=== PATIENT | female | born 1935 ===

== ENCOUNTER → 2020-12-16 | Outpatient (CLI) | payer MEDICARE ==
--- NOTE | 2020-12-16 16:04 | RAD ---
US ABDOMINAL AORTA SCREENING AAA History:Reason: AAA / Spl. Instructions: / History: Comparison: January 14, 2017. Technique: Sonographic examination of the abdominal aorta was performed and multiple static images we re obtained. Degraded evaluation due to overlying bowel gas. Aneurysmal dilatation of the distal aorta measures 5. 4 cm anterior. Iliac arteries not well seen due to overlying bowel gas. Atheromatous plaque throughou t the aorta. Results discussed with physician office by clinical technologist at time of study. Impression: 1. Increased 5.4 cm abdominal aortic aneurysm. Electronically signed by: Rober Morocho DO (12/16/2020 4:02 PM) [id number]
== END ==
LOC: US 14:44
PROVIDERS: ATTEND Family Medicine
DX: I71.4 Abdominal aortic aneurysm, without rupture (principal); I70.0 Atherosclerosis of aorta
CPT/HCPCS: 76770

== ENCOUNTER 2021-12-18 22:13 | Inpatient (IN) | payer MEDICARE ==
[~2021-12-18] VITALS: Ht 149.9 cm; Wt 60.9 kg
[2021-12-18 22:10] VITALS: BP 155/69
[~2021-12-18 22:13] MED LIST: hydrALAZINE 25 MG TABLET PO SCH
[2021-12-18] MEDS: IV NORMAL SALINE 1000ML BAG 1,000 ML IV SCH (23:15)
[2021-12-19] MEDS: oxyCODONE/APAP 5/325 1 TAB TABLET PO PRN ×2 (00:06→13:14)
[2021-12-19] MEDS ORDERED: DILT240C33 PO (01:23)
[2021-12-19 02:45] VITALS: BP 118/72
[2021-12-19 04:50] LABS: HEMATOCRIT 33.7 % (36.0-47.0); HEMOGLOBIN 10.6 g/dL (12.0-15.5); RED BLOOD COUNT 3.54 x10^6/uL (3.50-5.40); RED CELL DISTRIBUTION WIDTH 15.2 % (11.5-14.5); WHITE BLOOD COUNT 11.4 x10^3/uL (4.0-11.0)
[2021-12-19] MEDS ORDERED: DOCU-109 PO (05:12)
[2021-12-19 06:04] LABS: CALCIUM 7.9 mg/dL (8.5-10.1); CREATININE 0.9 mg/dL (0.6-1.0); GFR 59.5; POTASSIUM 4.7 mmol/L (3.5-5.1)
[2021-12-19] MEDS ORDERED: TIOT4MIS3 IH (06:16)
[2021-12-19] MEDS ORDERED: ALBU2.5V8 IH (06:16)
[2021-12-19 07:00] VITALS: BP 142/65
[2021-12-19] MEDS ORDERED: NON FORMULARY ITEM (Tiotropium Br/Olodaterol HCl (Stiolto Respimat Inhal Spray) 4 GM) IH SCH (08:45)
[2021-12-19] MEDS ORDERED: IPRATRPIUM/ALBUTEROL 0.5/2.5MG 3 ML NEBU. NEB ONE (08:45)
--- NOTE | 2021-12-19 08:58 | PDOC1 ---
History and Physical Date of Admission Date of Admission DATE: 12/19/21 TIME: 08:47 Identification/Chief Complaint Chief Complaint hip pain Source Source: Chart review, Patient History of Present Illness History of Present Illness pt fell at [facility] and went to [facility], CK was 1480, BUN 53, Cr 1.4, glucose 160, C02 30 in the ER. IV fluid started by me overnight and labs better Family History Family History: No Significant Social History Smoke: No ALCOHOL: none Drugs: None Current Medications Current Medications Current Medications Morphine Sulfate (Morphine Sulfate) 2 mg PRN Q2HR PRN IVP PAIN; Start 12/18/21 at 23:15 Oxycodone/ Acetaminophen (Percocet 5/325) 2 tab PRN Q4HRS PRN PO pain severe; Start 12/18/21 at 23:15 Sodium Chloride 1,000 ml @ 80 mls/hr [id number] IV Last administered on 12/18/21at 23:15; Start 12/18/21 at 23:15 Amlodipine Besylate (Norvasc) 5 mg DAILY PO ; Start 12/18/21 at 00:00; Status Cancel Hydralazine HCl (Apresoline) 25 mg TID PO Last administered on 12/19/21at 00:06; Start 12/18/21 at 00:00; Stop 12/19/21 at 08:39; Status DC Oxycodone/ Acetaminophen (Percocet 5/325) 1 tab PRN Q4HRS PRN PO PAIN mild/mod Last administered on 12/19/21at 00:06; Start 12/19/21 at 00:00 Diltiazem HCl (Cardizem 24hr Cd) 240 mg DAILY PO ; Start 12/19/21 at 09:00 Docusate Sodium (Colace) 100 mg DAILY PO ; Start 12/19/21 at 09:00 Non-Formulary Medication (Tiotropium Br/ Olodaterol HCl (Stiolto Respimat Inhal [place])) 4 gm PRN QEVNG IH ; Start 12/19/21 at 08:45; Status UNV Active Scripts Active Reported Proair Hfa Inhaler (Albuterol Sulfate) 8.5 Gm Hfa.aer.ad 2 Puff IH PRN Q4-6HRS PRN 21 Days Stiolto Respimat Inhal [place] (Tiotropium Br/Olodaterol HCl) 4 Gm Mist.inhal 4 Gm IH PRN QEVNG Colace (Docusate Sodium) 100 Mg Capsule 100 Mg PO PRN PRN Diltiazem 24Hr Cd (Diltiazem HCl) 240 Mg Cap.er.24h 1 Cap PO DAILY 30 Days Allergies Allergies: Coded Allergies: Penicillins (Verified Allergy, Intermediate, Hives, 12/18/21) gabapentin (Verified Allergy, Intermediate, Hives, 12/18/21) itchy and anxiety [id number]-[id number]-TmP Reductase Inhibitor (Verified Allergy, Unknown, Hives, 12/18/21) not sure says itchy, hives and confused tramadol (Verified Adverse Reaction, Unknown, Anxiety, 12/18/21) ROS General: No: Chills, Night Sweats, Fatigue, Malaise, Appetite, Other PSYCHOLOGICAL ROS: No: Anxiety, Behavioral Disorder, Concentration difficultie, Decreased libido, Depression, Disorientation, Hallucinations, Hostility, Irritablity, Memory difficulties, Mood Swings, Obsessive thoughts, Physical abuse, Sexual abuse, Sleep disturbances, Suicidal ideation, Other Eyes: No Blurry vision, No Decreased vision, No Double vision, No Dry eyes, No Excessive tearing, No Eye Pain, No Itchy Eyes, No Loss of vision, No Photophobia, No Scotomata, No Uses contacts, No Uses glasses, No Other HEENT: No: Heacaches, Visual Changes, Hearing change, Nasal congestion, Nasal discharge, Oral lesions, Sinus pain, Sore Throat, Epistaxis, Sneezing, Snoring, Tinnitus, Vertigo, Vocal changes, Other ENDOCRINE: No: Breast Changes, Galactorrhea, Hair Pattern Changes, Hot Flashes, Malaise/lethargy, Mood Swings, Palpitations, Polydipsia/polyuria, Skin Changes, Temperature Intolerance, Unexpected Weight Changes, Other Respiratory: YES: Shortness of breath, Tachypnea; No: Cough, Hemoptysis, Orthopnea, Pleuritic Pain, SOB with excertion, Sputum Changes, Stridor, Wheezing, Other Cardiovascular: No Chest Pain, No Palpitations, No Orthopnea, No Paroxysmal Noc. Dyspnea, No Edema, No Lt Headedness, No Other Gastrointestinal: No Nausea, No Vomiting, No Abdominal Pain, No Diarrhea, No Constipation, No Melena, No Hematochezia, No Other Genitourinary: No Dysuria, No Frequency, No Incontinence, No Hematuria, No Retention, No Discharge, No Urgency, No Pain, No Flank Pain, No Other, No , No , No , No , No , No , No Musculoskeletal: No Gait Disturbance, No Joint Pain, No Joint Stiffness, No Joint Swelling, No Muscle Pain, No Muscular Weakness, No Pain In:, No Swelling In:, No Other Neurological: No Behavorial Changes, No Bowel/Bladder ControlChng, No Confusion, No Dizziness, No Gait Disturbance, No Headaches, No Impaired Coord/balance, No Memory Loss, No Numbness/Tingling, No Seizures, No Speech Problems, No Tremors, No Visual Changes, No Weakness, No Other Skin: No Dry Skin, No Eczema, No Hair Changes, No Lumps, No Mole Changes, No Mottling, No Nail Changes, No Pruritus, No Rash, No Skin Lesion Changes, No Other, No Acne Physical Exam General: Cooperative, moderate distress (pain) HEENT: PERRLA, EOMI, Mucous membr. moist/pink Lungs: Other (limited volume, end wheeze, ) Heart: no gallops, no murmurs Abdomen: Normal bowel sounds, No tenderness, No hepatosplenomegaly Extremities: No cyanosis, No edema Skin: No rashes, No significant lesion Neuro: Normal tone, Sensation intact Psych/Mental Status: Mood NL Vitals Vitals Vital Signs Date Time Temp Pulse Resp B/P (MAP) Pulse Ox O2 Delivery O2 Flow Rate FiO2 12/19/21 02:45 97.9 82 16 118/72 (87) 99 Nasal Cannula 4.0 97.9 Labs Labs Laboratory Tests Test 12/19/21 04:40 White Blood Count 11.4 x10^3/uL (4.0-11.0) Red Blood Count 3.54 x10^6/uL (3.50-5.40) Hemoglobin 10.6 g/dL (12.0-15.5) Hematocrit 33.7 % (36.0-47.0) Mean Corpuscular Volume 95 fL (79-100) Mean Corpuscular Hemoglobin 30 pg (25-35) Mean Corpuscular Hemoglobin Concent 32 g/dL (31-37) Red Cell Distribution Width 15.2 % (11.5-14.5) Platelet Count 193 x10^3/uL (140-400) Sodium Level 140 mmol/L (136-145) Potassium Level 4.7 mmol/L (3.5-5.1) Chloride Level 105 mmol/L (98-107) Carbon Dioxide Level 30 mmol/L (21-32) Anion Gap 5 (6-14) Blood Urea Nitrogen 38 mg/dL (7-20) Creatinine 0.9 mg/dL (0.6-1.0) Estimated GFR (Cockcroft-Gault) 59.5 Glucose Level 112 mg/dL (70-99) Calcium Level 7.9 mg/dL (8.5-10.1) Creatine Kinase 627 U/L (26-192) Troponin I High Sensitivity 279 ng/L (4-50) Laboratory Tests Test 12/19/21 04:40 White Blood Count 11.4 x10^3/uL (4.0-11.0) Red Blood Count 3.54 x10^6/uL (3.50-5.40) Hemoglobin 10.6 g/dL (12.0-15.5) Hematocrit 33.7 % (36.0-47.0) Mean Corpuscular Volume 95 fL (79-100) Mean Corpuscular Hemoglobin 30 pg (25-35) Mean Corpuscular Hemoglobin Concent 32 g/dL (31-37) Red Cell Distribution Width 15.2 % (11.5-14.5) Platelet Count 193 x10^3/uL (140-400) Sodium Level 140 mmol/L (136-145) Potassium Level 4.7 mmol/L (3.5-5.1) Chloride Level 105 mmol/L (98-107) Carbon Dioxide Level 30 mmol/L (21-32) Anion Gap 5 (6-14) Blood Urea Nitrogen 38 mg/dL (7-20) Creatinine 0.9 mg/dL (0.6-1.0) Estimated GFR (Cockcroft-Gault) 59.5 Glucose Level 112 mg/dL (70-99) Calcium Level 7.9 mg/dL (8.5-10.1) Creatine Kinase 627 U/L (26-192) Troponin I High Sensitivity 279 ng/L (4-50) VTE Prophylaxis Ordered VTE Prophylaxis Devices: No VTE Pharmacological Prophylaxi: Yes Assessment/Plan Assessment/Plan RIght hip fracture, ortho consult, was NPO ordered, has eaten this AM, hopefully can schedule soon, maybe late today COPD, with tachypnea, may be at baseline, will get steroid nebs and combivent nebs, consult PULM for pre-op and to follow rhabdomyolysis, CK was 1480 last night, now 600 range with IV fluid overnight, cont, has white, renal function better on Cardizem, in sinus rhythm currenlty cognitive decline, or confused due to transfer and pain, hip pain, 2 prn pain meds, noted allergy to gabapentin admit Justifications for Admission Other Justification IZABELA PELAYO MD Dec 19, 2021 08:58
[2021-12-19] MEDS ORDERED: GABAPENTIN 100 MG CAPSULE. PO SCH (09:00)
--- NOTE | 2021-12-19 09:32 | PDOC ---
PULMONARY PROGRESS NOTES DATE: 12/19/21 TIME: 09:31 Vitals Vital Signs Date Time Temp Pulse Resp B/P (MAP) Pulse Ox O2 Delivery O2 Flow Rate FiO2 12/19/21 07:00 98.1 92 18 142/65 (90) 98 Nasal Cannula 4.0 98.1 Labs Laboratory Tests Test 12/19/21 04:40 12/19/21 08:15 White Blood Count 11.4 x10^3/uL (4.0-11.0) Red Blood Count 3.54 x10^6/uL (3.50-5.40) Hemoglobin 10.6 g/dL (12.0-15.5) Hematocrit 33.7 % (36.0-47.0) Mean Corpuscular Volume 95 fL (79-100) Mean Corpuscular Hemoglobin 30 pg (25-35) Mean Corpuscular Hemoglobin Concent 32 g/dL (31-37) Red Cell Distribution Width 15.2 % (11.5-14.5) Platelet Count 193 x10^3/uL (140-400) Sodium Level 140 mmol/L (136-145) Potassium Level 4.7 mmol/L (3.5-5.1) Chloride Level 105 mmol/L (98-107) Carbon Dioxide Level 30 mmol/L (21-32) Anion Gap 5 (6-14) Blood Urea Nitrogen 38 mg/dL (7-20) Creatinine 0.9 mg/dL (0.6-1.0) Estimated GFR (Cockcroft-Gault) 59.5 Glucose Level 112 mg/dL (70-99) Calcium Level 7.9 mg/dL (8.5-10.1) Creatine Kinase 627 U/L (26-192) Troponin I High Sensitivity 279 ng/L (4-50) 243 ng/L (4-50) Laboratory Tests Test 12/19/21 04:40 12/19/21 08:15 White Blood Count 11.4 x10^3/uL (4.0-11.0) Red Blood Count 3.54 x10^6/uL (3.50-5.40) Hemoglobin 10.6 g/dL (12.0-15.5) Hematocrit 33.7 % (36.0-47.0) Mean Corpuscular Volume 95 fL (79-100) Mean Corpuscular Hemoglobin 30 pg (25-35) Mean Corpuscular Hemoglobin Concent 32 g/dL (31-37) Red Cell Distribution Width 15.2 % (11.5-14.5) Platelet Count 193 x10^3/uL (140-400) Sodium Level 140 mmol/L (136-145) Potassium Level 4.7 mmol/L (3.5-5.1) Chloride Level 105 mmol/L (98-107) Carbon Dioxide Level 30 mmol/L (21-32) Anion Gap 5 (6-14) Blood Urea Nitrogen 38 mg/dL (7-20) Creatinine 0.9 mg/dL (0.6-1.0) Estimated GFR (Cockcroft-Gault) 59.5 Glucose Level 112 mg/dL (70-99) Calcium Level 7.9 mg/dL (8.5-10.1) Creatine Kinase 627 U/L (26-192) Troponin I High Sensitivity 279 ng/L (4-50) 243 ng/L (4-50) Medications Active Scripts Medications Dose Route/Sig Max Daily Dose Days Date Category Proair Hfa Inhaler (Albuterol Sulfate) 8.5 Gm Hfa.aer.ad 2 Puff IH PRN Q4-6HRS PRN 21 12/19/21 Reported Stiolto Respimat Inhal [place] (Tiotropium Br/Olodaterol HCl) 4 Gm Mist.inhal 4 Gm IH PRN QEVNG 12/19/21 Reported Colace (Docusate Sodium) 100 Mg Capsule 100 Mg PO PRN PRN 12/19/21 Reported Diltiazem 24Hr Cd (Diltiazem HCl) 240 Mg Cap.er.24h 1 Cap PO DAILY 30 12/19/21 Reported Impression . Full note dictated Respiratory status compensated BRITNEY ELIZABETH MD Dec 19, 2021 09:32
[2021-12-19] MEDS: CHOLECALCIFEROL (VITAMIN D3) 5,000 UNIT CAPSULE PO SCH (09:48)
[2021-12-19] MEDS: DOCUSATE SODIUM 100 MG CAPSULE. PO SCH (09:49)
[2021-12-19 11:00] VITALS: BP 142/65
[2021-12-19] MEDS: IPRATRPIUM/ALBUTEROL 0.5/2.5MG 3 ML NEBU. NEB SCH ×3 (11:01→20:09)
[2021-12-19] MEDS: IV NORMAL SALINE 1000ML BAG 1,000 ML IV SCH (13:13)
[2021-12-19] MEDS: HEPARIN for SUB-Q USE 5,000 UNIT/ML VIAL. SQ SCH ×2 (14:00→21:30)
[2021-12-19] MEDS: NYSTATIN TOPICAL POWDER 15GM BOTTLE. TP SCH ×2 (14:00→21:29)
[2021-12-19 15:00] VITALS: BP 135/70
[2021-12-19] MEDS: MORPHINE SULFATE 2 MG/ML INJ. IVP PRN (15:38)
[2021-12-19] MEDS ORDERED: DOCU100C28 PO (16:03)
[2021-12-19] MEDS ORDERED: DOXY100T PO (16:03)
[2021-12-19] MEDS ORDERED: VENTOLIN HFA18 GM INH (16:03)
[2021-12-19] MEDS ORDERED: METH-562 PO (16:03)
[2021-12-19] MEDS ORDERED: POLY2500 PO (16:03)
[2021-12-19] MEDS ORDERED: PRED20TA PO (16:03)
[2021-12-19] MEDS ORDERED: ALPR0.5T6 PO (16:03)
[2021-12-19] MEDS ORDERED: IPRA3AMP29 NEB (16:03)
[2021-12-19] MEDS ORDERED: HYDR25TA PO (16:03)
[2021-12-19] MEDS ORDERED: HYDR-2869 PO (16:03)
--- NOTE | 2021-12-19 16:04 | EKG ---
[facility] [address] [place] [address] Test Date: 2021-12-19 Test Time: 15:55:20 Pat Name: KESHAV RONQUILLO Department: Room: [facility] Gender: F Commercial Sales Consultant: YULI : 1935 Requested By: IZABELA PELAYO Order Number: [id number] Reading MD: Jadiel Fish Measurements Intervals [place] Rate: 97 P: 47 MS: 146 QRS: 13 QRSD: 88 T: 42 QT: 330 QTc: 423 Interpretive Statements SINUS RHYTHM Electronically Signed On 12-30-2021 9:39:50 CDT by Jadiel Fish
--- NOTE | 2021-12-19 16:27 | PDOC2 ---
CONSULT Date of Consult Date of Consult DATE: 12/19/21 TIME: 16:17 Reason for Consult Reason for Consult: Possible hip fracture Referring Physician Referring Physician: Refugio Identification/Chief Complaint Chief Complaint "whole body hurts" denies any hip pain Source Source: Chart review, Patient History of Present Illness Reason for Visit: Patient is a pleasant 86 yo F who fell out of bed recently and tells me her "whole body hurts", she has baseline pain but it has been worse since the fall. She denies any hip pain at rest or wtih attempted ambulation. She feel the pain throughout her lower legs, arms and back. Denies hitting her head. Past Medical History Cardiovascular: HTN Pulmonary: COPD GI: No pertinent hx Musculoskeletal: low back pain, Osteoarthritis Past Surgical History Past Surgical History: No pertinent history Family History Family History: No Significant Social History Quit ALCOHOL: none Drugs: None Current Medications Current Medications Current Medications Morphine Sulfate (Morphine Sulfate) 2 mg PRN Q2HR PRN IVP PAIN Last administered on 12/19/21at 15:38; Start 12/18/21 at 23:15 Oxycodone/ Acetaminophen (Percocet 5/325) 2 tab PRN Q4HRS PRN PO pain severe; Start 12/18/21 at 23:15 Sodium Chloride 1,000 ml @ 80 mls/hr [id number] IV Last administered on 12/19/21at 13:13; Start 12/18/21 at 23:15 Amlodipine Besylate (Norvasc) 5 mg DAILY PO ; Start 12/18/21 at 00:00; Status Cancel Hydralazine HCl (Apresoline) 25 mg TID PO Last administered on 12/19/21at 00:06; Start 12/18/21 at 00:00; Stop 12/19/21 at 08:39; Status DC Oxycodone/ Acetaminophen (Percocet 5/325) 1 tab PRN Q4HRS PRN PO PAIN mild/mod Last administered on 12/19/21at 13:14; Start 12/19/21 at 00:00 Diltiazem HCl (Cardizem 24hr Cd) 240 mg DAILY PO Last administered on 12/19/21at 09:49; Start 12/19/21 at 09:00 Docusate Sodium (Colace) 100 mg DAILY PO Last administered on 12/19/21at 09:49; Start 12/19/21 at 09:00 Non-Formulary Medication (Tiotropium Br/ Olodaterol HCl (Stiolto Respimat Inhal [place])) 4 gm PRN QEVNG IH ; Start 12/19/21 at 08:45; Status UNV Albuterol/ Ipratropium (Duoneb) 3 ml RTQID NEB Last administered on 12/19/21at 15:46; Start 12/19/21 at 12:00 Gabapentin (Neurontin) 100 mg BID PO ; Start 12/19/21 at 09:00; Stop 12/19/21 at 08:50; Status DC Albuterol/ Ipratropium (Duoneb) 3 ml 1X ONCE NEB ; Start 12/19/21 at 08:45; Stop 12/19/21 at 08:48; Status DC Budesonide (Pulmicort) 0.5 mg RTBID NEB ; Start 12/19/21 at 20:00 Heparin Sodium (Porcine) (Heparin Sodium) 5,000 unit Q8HRS SQ ; Start 12/19/21 at 14:00 Vitamin D (Vitamin D3) 5,000 unit DAILY PO Last administered on 12/19/21at 09:48; Start 12/19/21 at 09:00 Nystatin (Nystop) 1 helio BID TP ; Start 12/19/21 at 14:00 Active Scripts Active Reported Ventolin Hfa Inhaler (Albuterol Sulfate) 18 Gm Hfa.aer.ad 2 Puff INH Q4HRS Hydralazine Hcl 50 Mg Tablet 1 Tab PO TID Methocarbamol 750 Mg Tablet 750 Mg PO TID Doxycycline Hyclate 100 Mg Tablet 1 Tab PO BID Prednisone 20 Mg Tablet 10 Tab PO DAILY Polyethylene Glycol 3350 2,500 Gm Powder 17 Gm PO DAILY Duoneb 0.5-3(2.5) Mg/3 Ml (Albuterol/Ipratropium) 3 Ml Ampul.neb 3 Ml NEB QID Hydroxyzine Hcl 25 Mg Tablet 1 Tab PO HS Docusate Sodium 100 Mg Capsule 1 Cap PO BID 7 Days Alprazolam 0.5 Mg Tablet 1 Tab PO Q12HR Proair Hfa Inhaler (Albuterol Sulfate) 8.5 Gm Hfa.aer.ad 2 Puff IH PRN Q4-6HRS PRN 21 Days Stiolto Respimat Inhal [place] (Tiotropium Br/Olodaterol HCl) 4 Gm Mist.inhal 4 Gm IH PRN QEVNG Colace (Docusate Sodium) 100 Mg Capsule 100 Mg PO PRN PRN Diltiazem 24Hr Cd (Diltiazem HCl) 240 Mg Cap.er.24h 1 Cap PO DAILY 30 Days Allergies Allergies: Coded Allergies: Penicillins (Verified Allergy, Intermediate, Hives, 12/18/21) gabapentin (Verified Allergy, Intermediate, Hives, 12/18/21) itchy and anxiety Hbxwkiu-TXM-PkC Reductase Inhibitor (Verified Allergy, Unknown, Hives, 12/18/21) not sure says itchy, hives and confused tramadol (Verified Adverse Reaction, Unknown, Anxiety, 12/18/21) ROS General: No: Chills, Night Sweats, Fatigue, Malaise, Appetite, Other PSYCHOLOGICAL ROS: No: Anxiety, Behavioral Disorder, Concentration difficultie, Decreased libido, Depression, Disorientation, Hallucinations, Hostility, Irritablity, Memory difficulties, Mood Swings, Obsessive thoughts, Physical abuse, Sexual abuse, Sleep disturbances, Suicidal ideation, Other Eyes: No Blurry vision, No Decreased vision, No Double vision, No Dry eyes, No Excessive tearing, No Eye Pain, No Itchy Eyes, No Loss of vision, No Photophobia, No Scotomata, No Uses contacts, No Uses glasses, No Other HEENT: No: Heacaches, Visual Changes, Hearing change, Nasal congestion, Nasal discharge, Oral lesions, Sinus pain, Sore Throat, Epistaxis, Sneezing, Snoring, Tinnitus, Vertigo, Vocal changes, Other ALLERGY AND IMMUNOLOGY: No: Hives, Insect Bite Sensitivity, Itchy/Watery Eyes, Nasal Congestion, Post Nasal Drip, Seasonal Allergies, Other Hematological and Lymphatic: No: Bleeding Problems, Blood Clots, Blood Trans fusions, Brusing, Night Sweats, Pallor, Swollen Lymph Nodes, Other Respiratory: YES: Other (no new complaints); No: Cough, Hemoptysis, Orthopnea, Pleuritic Pain, Shortness of breath, SOB with excertion, Sputum Changes, Stridor, Tachypnea, Wheezing Cardiovascular: No Chest Pain, No Palpitations, No Orthopnea, No Paroxysmal Noc. Dyspnea, No Edema, No Lt Headedness, No Other Gastrointestinal: No Nausea, No Vomiting, No Abdominal Pain, No Diarrhea, No Constipation, No Melena, No Hematochezia, No Other Genitourinary: No Dysuria, No Frequency, No Incontinence, No Hematuria, No Retention, No Discharge, No Urgency, No Pain, No Flank Pain, No Other, No , No , No , No , No , No , No Musculoskeletal: Yes Joint Pain, Yes Joint Stiffness Neurological: No Behavorial Changes, No Bowel/Bladder ControlChng, No Confusion, No Dizziness, No Gait Disturbance, No Headaches, No Impaired Coord/balance, No Memory Loss, No Numbness/Tingling, No Seizures, No Speech Problems, No Tremors, No Visual Changes, No Weakness, No Other Physical Exam General: Alert, Oriented X3, No acute distress HEENT: Atraumatic, EOMI Lungs: Other (symmetric chest rise, no resp distress) Heart: Regular rate Abdomen: Soft, No tenderness Extremities: No edema, Normal pulses Skin: No rashes Neuro: Strength at 5/5 X4 ext, Sensation intact Psych/Mental Status: Mental status NL, Mood NL MUSCULOSKELETAL: Other (diffusely tender from knees distally BLE, no effusions, no gross abnormalities, knees stable, no pain at hips with logrolling, no tende rness around hips) Vitals VITALS Vital Signs Date Time Temp Pulse Resp B/P (MAP) Pulse Ox O2 Delivery O2 Flow Rate FiO2 12/19/21 15:47 97 Nasal Cannula 4.0 12/19/21 11:00 98.1 92 18 142/65 (90) 98.1 Labs Labs Laboratory Tests Test 12/19/21 04:40 12/19/21 08:15 White Blood Count 11.4 x10^3/uL (4.0-11.0) Red Blood Count 3.54 x10^6/uL (3.50-5.40) Hemoglobin 10.6 g/dL (12.0-15.5) Hematocrit 33.7 % (36.0-47.0) Mean Corpuscular Volume 95 fL (79-100) Mean Corpuscular Hemoglobin 30 pg (25-35) Mean Corpuscular Hemoglobin Concent 32 g/dL (31-37) Red Cell Distribution Width 15.2 % (11.5-14.5) Platelet Count 193 x10^3/uL (140-400) Sodium Level 140 mmol/L (136-145) Potassium Level 4.7 mmol/L (3.5-5.1) Chloride Level 105 mmol/L (98-107) Carbon Dioxide Level 30 mmol/L (21-32) Anion Gap 5 (6-14) Blood Urea Nitrogen 38 mg/dL (7-20) Creatinine 0.9 mg/dL (0.6-1.0) Estimated GFR (Cockcroft-Gault) 59.5 Glucose Level 112 mg/dL (70-99) Calcium Level 7.9 mg/dL (8.5-10.1) Creatine Kinase 627 U/L (26-192) Troponin I High Sensitivity 279 ng/L (4-50) 243 ng/L (4-50) Laboratory Tests Test 12/19/21 04:40 12/19/21 08:15 White Blood Count 11.4 x10^3/uL (4.0-11.0) Red Blood Count 3.54 x10^6/uL (3.50-5.40) Hemoglobin 10.6 g/dL (12.0-15.5) Hematocrit 33.7 % (36.0-47.0) Mean Corpuscular Volume 95 fL (79-100) Mean Corpuscular Hemoglobin 30 pg (25-35) Mean Corpuscular Hemoglobin Concent 32 g/dL (31-37) Red Cell Distribution Width 15.2 % (11.5-14.5) Platelet Count 193 x10^3/uL (140-400) Sodium Level 140 mmol/L (136-145) Potassium Level 4.7 mmol/L (3.5-5.1) Chloride Level 105 mmol/L (98-107) Carbon Dioxide Level 30 mmol/L (21-32) Anion Gap 5 (6-14) Blood Urea Nitrogen 38 mg/dL (7-20) Creatinine 0.9 mg/dL (0.6-1.0) Estimated GFR (Cockcroft-Gault) 59.5 Glucose Level 112 mg/dL (70-99) Calcium Level 7.9 mg/dL (8.5-10.1) Creatine Kinase 627 U/L (26-192) Troponin I High Sensitivity 279 ng/L (4-50) 243 ng/L (4-50) Images Images Xrays and CT from [facility] interpreted by myself, report reviewed. Xray showed possible linera luceny, CT demonstrated no fractures Assessment/Plan Assessment/Plan Given her imaging findgings and lack of hip pain, I recommended an attempt at weight bearing with PT/OT. Id recommend further imaging, Xrays to start; MRI of pelvis, with any increased pain during that. D/w nursing, will follow along ANA LENNON II, MD Dec 19, 2021 16:27
[2021-12-19 19:28] VITALS: BP 138/63
--- NOTE | 2021-12-19 19:40 | NUR ---
pt in bed assessment completed vss poc explained pt denied pain at this time call light in reach bed alarm is set will resume care and monitor pt.
[2021-12-19] MEDS: BUDESONIDE 0.5 MG/2 ML NEBU. NEB SCH (20:09)
[2021-12-19 22:56] VITALS: BP 138/68
[2021-12-20] MEDS: IV NORMAL SALINE 1000ML BAG 1,000 ML IV SCH ×2 (00:15→12:45)
[2021-12-20] MEDS: oxyCODONE/APAP 5/325 1 TAB TABLET PO PRN ×2 (00:43→20:17)
[2021-12-20 02:43] VITALS: BP 137/56
[2021-12-20 05:01] LABS: BASO # 0.1 x10^3/uL (0.0-0.2); BASO % 1 % (0-3); EOS # 0.1 x10^3/uL (0.0-0.7); EOS % 1 % (0-3); HEMATOCRIT 34.5 % (36.0-47.0); HEMOGLOBIN 10.8 g/dL (12.0-15.5); LYMPH % 12 % (24-48); MEAN CORPUSCULAR HEMOGLOBIN 30 pg (25-35); MEAN CORPUSCULAR HGB CONC 31 g/dL (31-37); MEAN CORPUSCULAR VOLUME 96 fL (79-100); MONO # 0.9 x10^3/uL (0.0-1.1); MONO % 10 % (0-9); NEUT # 6.6 x10^3/uL (1.8-7.7); NEUT % 76 % (31-73); PLATELET COUNT 228 x10^3/uL (140-400); RED BLOOD COUNT 3.59 x10^6/uL (3.50-5.40); RED CELL DISTRIBUTION WIDTH 15.2 % (11.5-14.5); WHITE BLOOD COUNT 8.7 x10^3/uL (4.0-11.0)
[2021-12-20 05:31] LABS: ALBUMIN/GLOBULIN RATIO 0.8 (1.0-1.7); CALCIUM 8.3 mg/dL (8.5-10.1); CREATININE 0.8 mg/dL (0.6-1.0); GFR 68.2; POTASSIUM 4.5 mmol/L (3.5-5.1); TOTAL BILIRUBIN 0.3 mg/dL (0.2-1.0); TOTAL PROTEIN 6.6 g/dL (6.4-8.2)
[2021-12-20] MEDS: HEPARIN for SUB-Q USE 5,000 UNIT/ML VIAL. SQ SCH ×3 (06:12→21:05)
[2021-12-20 07:00] VITALS: BP 154/69
[2021-12-20] MEDS: BUDESONIDE 0.5 MG/2 ML NEBU. NEB SCH ×2 (07:07→20:00)
[2021-12-20] MEDS: IPRATRPIUM/ALBUTEROL 0.5/2.5MG 3 ML NEBU. NEB SCH ×4 (07:07→20:00)
--- NOTE | 2021-12-20 08:30 | PDOC ---
ORTHO PROGRESS NOTES DATE: 12/20/21 TIME: 08:29 Subjective Patient complaining of whole body pain worse with any attempted movement or weightbearing. She is complaining of some hip pain today, diffuse, nonradiat ing, worse when she tries to put weight on her legs. Vitals Vital Signs Date Time Temp Pulse Resp B/P (MAP) Pulse Ox O2 Delivery O2 Flow Rate FiO2 12/20/21 07:08 95 Nasal Cannula 4.0 12/20/21 07:00 97.4 73 18 154/69 (97) 97.4 Labs Laboratory Tests Test 12/19/21 04:40 12/19/21 08:15 12/20/21 03:20 White Blood Count 11.4 x10^3/uL (4.0-11.0) 8.7 x10^3/uL (4.0-11.0) Red Blood Count 3.54 x10^6/uL (3.50-5.40) 3.59 x10^6/uL (3.50-5.40) Hemoglobin 10.6 g/dL (12.0-15.5) 10.8 g/dL (12.0-15.5) Hematocrit 33.7 % (36.0-47.0) 34.5 % (36.0-47.0) Mean Corpuscular Volume 95 fL (79-100) 96 fL (79-100) Mean Corpuscular Hemoglobin 30 pg (25-35) 30 pg (25-35) Mean Corpuscular Hemoglobin Concent 32 g/dL (31-37) 31 g/dL (31-37) Red Cell Distribution Width 15.2 % (11.5-14.5) 15.2 % (11.5-14.5) Platelet Count 193 x10^3/uL (140-400) 228 x10^3/uL (140-400) Sodium Level 140 mmol/L (136-145) 139 mmol/L (136-145) Potassium Level 4.7 mmol/L (3.5-5.1) 4.5 mmol/L (3.5-5.1) Chloride Level 105 mmol/L (98-107) 106 mmol/L (98-107) Carbon Dioxide Level 30 mmol/L (21-32) 32 mmol/L (21-32) Anion Gap 5 (6-14) 1 (6-14) Blood Urea Nitrogen 38 mg/dL (7-20) 25 mg/dL (7-20) Creatinine 0.9 mg/dL (0.6-1.0) 0.8 mg/dL (0.6-1.0) Estimated GFR (Cockcroft-Gault) 59.5 68.2 Glucose Level 112 mg/dL (70-99) 98 mg/dL (70-99) Calcium Level 7.9 mg/dL (8.5-10.1) 8.3 mg/dL (8.5-10.1) Creatine Kinase 627 U/L (26-192) 254 U/L (26-192) Troponin I High Sensitivity 279 ng/L (4-50) 243 ng/L (4-50) Neutrophils (%) (Auto) 76 % (31-73) Lymphocytes (%) (Auto) 12 % (24-48) Monocytes (%) (Auto) 10 % (0-9) Eosinophils (%) (Auto) 1 % (0-3) Basophils (%) (Auto) 1 % (0-3) Neutrophils # (Auto) 6.6 x10^3/uL (1.8-7.7) Lymphocytes # (Auto) 1.0 x10^3/uL (1.0-4.8) Monocytes # (Auto) 0.9 x10^3/uL (0.0-1.1) Eosinophils # (Auto) 0.1 x10^3/uL (0.0-0.7) Basophils # (Auto) 0.1 x10^3/uL (0.0-0.2) BUN/Creatinine Ratio 31 (6-20) Ionized Calcium 1.23 mmol/L (1.13-1.32) Total Bilirubin 0.3 mg/dL (0.2-1.0) Aspartate Amino Transf (AST/SGOT) 39 U/L (15-37) Alanine Aminotransferase (ALT/SGPT) 42 U/L (14-59) Alkaline Phosphatase 96 U/L (46-116) Total Protein 6.6 g/dL (6.4-8.2) Albumin 3.0 g/dL (3.4-5.0) Albumin/Globulin Ratio 0.8 (1.0-1.7) Laboratory Tests Test 12/20/21 03:20 White Blood Count 8.7 x10^3/uL (4.0-11.0) Red Blood Count 3.59 x10^6/uL (3.50-5.40) Hemoglobin 10.8 g/dL (12.0-15.5) Hematocrit 34.5 % (36.0-47.0) Mean Corpuscular Volume 96 fL (79-100) Mean Corpuscular Hemoglobin 30 pg (25-35) Mean Corpuscular Hemoglobin Concent 31 g/dL (31-37) Red Cell Distribution Width 15.2 % (11.5-14.5) Platelet Count 228 x10^3/uL (140-400) Neutrophils (%) (Auto) 76 % (31-73) Lymphocytes (%) (Auto) 12 % (24-48) Monocytes (%) (Auto) 10 % (0-9) Eosinophils (%) (Auto) 1 % (0-3) Basophils (%) (Auto) 1 % (0-3) Neutrophils # (Auto) 6.6 x10^3/uL (1.8-7.7) Lymphocytes # (Auto) 1.0 x10^3/uL (1.0-4.8) Monocytes # (Auto) 0.9 x10^3/uL (0.0-1.1) Eosinophils # (Auto) 0.1 x10^3/uL (0.0-0.7) Basophils # (Auto) 0.1 x10^3/uL (0.0-0.2) Sodium Level 139 mmol/L (136-145) Potassium Level 4.5 mmol/L (3.5-5.1) Chloride Level 106 mmol/L (98-107) Carbon Dioxide Level 32 mmol/L (21-32) Anion Gap 1 (6-14) Blood Urea Nitrogen 25 mg/dL (7-20) Creatinine 0.8 mg/dL (0.6-1.0) Estimated GFR (Cockcroft-Gault) 68.2 BUN/Creatinine Ratio 31 (6-20) Glucose Level 98 mg/dL (70-99) Calcium Level 8.3 mg/dL (8.5-10.1) Ionized Calcium 1.23 mmol/L (1.13-1.32) Total Bilirubin 0.3 mg/dL (0.2-1.0) Aspartate Amino Transf (AST/SGOT) 39 U/L (15-37) Alanine Aminotransferase (ALT/SGPT) 42 U/L (14-59) Alkaline Phosphatase 96 U/L (46-116) Creatine Kinase 254 U/L (26-192) Total Protein 6.6 g/dL (6.4-8.2) Albumin 3.0 g/dL (3.4-5.0) Albumin/Globulin Ratio 0.8 (1.0-1.7) Notes She is awake and alert in bed. She is eating breakfast. Mood and affect are appropriate. Examination of bilateral lower extremities reveals diffuse tenderness throughout, she has increased pain around her hips and pelvis with logrolling bilaterally Problems: (1) Hip pain, bilateral Assessment and Plan Given her pain and inability to work with PT and OT, we do need to get an MRI to exclude fracture. We will hold off on PT and OT until MRI has been performed ANA LENNON II, MD Dec 20, 2021 08:30
--- NOTE | 2021-12-20 08:42 | PDOC ---
PULMONARY PROGRESS NOTES DATE: 12/20/21 TIME: 08:42 Subjective Patient not more short of air, continues to have great pain mainly all over more activity Vitals Vital Signs Date Time Temp Pulse Resp B/P (MAP) Pulse Ox O2 Delivery O2 Flow Rate FiO2 12/20/21 07:08 95 Nasal Cannula 4.0 12/20/21 07:00 97.4 73 18 154/69 (97) 97.4 ROS: No Nausea, No Chest Pain, No Abdominal Pain, No Increase Cough General: Alert Cardiovascular: S1, S2 Abdomen: Soft Neuro Exam: Alert Extremities: No Edema Labs Laboratory Tests Test 12/19/21 04:40 12/19/21 08:15 12/20/21 03:20 White Blood Count 11.4 x10^3/uL (4.0-11.0) 8.7 x10^3/uL (4.0-11.0) Red Blood Count 3.54 x10^6/uL (3.50-5.40) 3.59 x10^6/uL (3.50-5.40) Hemoglobin 10.6 g/dL (12.0-15.5) 10.8 g/dL (12.0-15.5) Hematocrit 33.7 % (36.0-47.0) 34.5 % (36.0-47.0) Mean Corpuscular Volume 95 fL (79-100) 96 fL (79-100) Mean Corpuscular Hemoglobin 30 pg (25-35) 30 pg (25-35) Mean Corpuscular Hemoglobin Concent 32 g/dL (31-37) 31 g/dL (31-37) Red Cell Distribution Width 15.2 % (11.5-14.5) 15.2 % (11.5-14.5) Platelet Count 193 x10^3/uL (140-400) 228 x10^3/uL (140-400) Sodium Level 140 mmol/L (136-145) 139 mmol/L (136-145) Potassium Level 4.7 mmol/L (3.5-5.1) 4.5 mmol/L (3.5-5.1) Chloride Level 105 mmol/L (98-107) 106 mmol/L (98-107) Carbon Dioxide Level 30 mmol/L (21-32) 32 mmol/L (21-32) Anion Gap 5 (6-14) 1 (6-14) Blood Urea Nitrogen 38 mg/dL (7-20) 25 mg/dL (7-20) Creatinine 0.9 mg/dL (0.6-1.0) 0.8 mg/dL (0.6-1.0) Estimated GFR (Cockcroft-Gault) 59.5 68.2 Glucose Level 112 mg/dL (70-99) 98 mg/dL (70-99) Calcium Level 7.9 mg/dL (8.5-10.1) 8.3 mg/dL (8.5-10.1) Creatine Kinase 627 U/L (26-192) 254 U/L (26-192) Troponin I High Sensitivity 279 ng/L (4-50) 243 ng/L (4-50) Neutrophils (%) (Auto) 76 % (31-73) Lymphocytes (%) (Auto) 12 % (24-48) Monocytes (%) (Auto) 10 % (0-9) Eosinophils (%) (Auto) 1 % (0-3) Basophils (%) (Auto) 1 % (0-3) Neutrophils # (Auto) 6.6 x10^3/uL (1.8-7.7) Lymphocytes # (Auto) 1.0 x10^3/uL (1.0-4.8) Monocytes # (Auto) 0.9 x10^3/uL (0.0-1.1) Eosinophils # (Auto) 0.1 x10^3/uL (0.0-0.7) Basophils # (Auto) 0.1 x10^3/uL (0.0-0.2) BUN/Creatinine Ratio 31 (6-20) Ionized Calcium 1.23 mmol/L (1.13-1.32) Total Bilirubin 0.3 mg/dL (0.2-1.0) Aspartate Amino Transf (AST/SGOT) 39 U/L (15-37) Alanine Aminotransferase (ALT/SGPT) 42 U/L (14-59) Alkaline Phosphatase 96 U/L (46-116) Total Protein 6.6 g/dL (6.4-8.2) Albumin 3.0 g/dL (3.4-5.0) Albumin/Globulin Ratio 0.8 (1.0-1.7) Laboratory Tests Test 12/20/21 03:20 White Blood Count 8.7 x10^3/uL (4.0-11.0) Red Blood Count 3.59 x10^6/uL (3.50-5.40) Hemoglobin 10.8 g/dL (12.0-15.5) Hematocrit 34.5 % (36.0-47.0) Mean Corpuscular Volume 96 fL (79-100) Mean Corpuscular Hemoglobin 30 pg (25-35) Mean Corpuscular Hemoglobin Concent 31 g/dL (31-37) Red Cell Distribution Width 15.2 % (11.5-14.5) Platelet Count 228 x10^3/uL (140-400) Neutrophils (%) (Auto) 76 % (31-73) Lymphocytes (%) (Auto) 12 % (24-48) Monocytes (%) (Auto) 10 % (0-9) Eosinophils (%) (Auto) 1 % (0-3) Basophils (%) (Auto) 1 % (0-3) Neutrophils # (Auto) 6.6 x10^3/uL (1.8-7.7) Lymphocytes # (Auto) 1.0 x10^3/uL (1.0-4.8) Monocytes # (Auto) 0.9 x10^3/uL (0.0-1.1) Eosinophils # (Auto) 0.1 x10^3/uL (0.0-0.7) Basophils # (Auto) 0.1 x10^3/uL (0.0-0.2) Sodium Level 139 mmol/L (136-145) Potassium Level 4.5 mmol/L (3.5-5.1) Chloride Level 106 mmol/L (98-107) Carbon Dioxide Level 32 mmol/L (21-32) Anion Gap 1 (6-14) Blood Urea Nitrogen 25 mg/dL (7-20) Creatinine 0.8 mg/dL (0.6-1.0) Estimated GFR (Cockcroft-Gault) 68.2 BUN/Creatinine Ratio 31 (6-20) Glucose Level 98 mg/dL (70-99) Calcium Level 8.3 mg/dL (8.5-10.1) Ionized Calcium 1.23 mmol/L (1.13-1.32) Total Bilirubin 0.3 mg/dL (0.2-1.0) Aspartate Amino Transf (AST/SGOT) 39 U/L (15-37) Alanine Aminotransferase (ALT/SGPT) 42 U/L (14-59) Alkaline Phosphatase 96 U/L (46-116) Creatine Kinase 254 U/L (26-192) Total Protein 6.6 g/dL (6.4-8.2) Albumin 3.0 g/dL (3.4-5.0) Albumin/Globulin Ratio 0.8 (1.0-1.7) Medications Active Scripts Medications Dose Route/Sig Max Daily Dose Days Date Category Proair Hfa Inhaler (Albuterol Sulfate) 8.5 Gm Hfa.aer.ad 2 Puff IH PRN Q4-6HRS PRN 21 12/19/21 Reported Stiolto Respimat Inhal [place] (Tiotropium Br/Olodaterol HCl) 4 Gm Mist.inhal 4 Gm IH PRN QEVNG 12/19/21 Reported Colace (Docusate Sodium) 100 Mg Capsule 100 Mg PO PRN PRN 12/19/21 Reported Diltiazem 24Hr Cd (Diltiazem HCl) 240 Mg Cap.er.24h 1 Cap PO DAILY 30 12/19/21 Reported Impression . IMPRESSION: 1. Abnormal x-ray, compatible with a history of chronic obstructive pulmonary disease, possible mild interstitial lung disease. 2. Chronic respiratory failure. 3. Recent fall, possible right hip fracture. 4. Rhabdomyolysis. Plan . 12/[address] Mansoor TRUJILLO pending Continue current support 12/18 PLAN: Respiratory status appears to be compensated, apparently the patient does not require any further orthopedic interventions. Continue current support. I do appreciate the privilege in sharing in the patient's care. BRITNEY ELIZABETH MD Dec 20, 2021 08:42
[2021-12-20] MEDS: NYSTATIN TOPICAL POWDER 15GM BOTTLE. TP SCH ×2 (09:00→20:18)
[2021-12-20] MEDS: MORPHINE SULFATE 2 MG/ML INJ. IVP PRN (09:05)
[2021-12-20] MEDS: DOCUSATE SODIUM 100 MG CAPSULE. PO SCH (09:14)
[2021-12-20] MEDS: CHOLECALCIFEROL (VITAMIN D3) 5,000 UNIT CAPSULE PO SCH (09:14)
--- NOTE | 2021-12-20 09:22 | CONS ---
DATE OF CONSULTATION: 12/19/2021 ATTENDING PHYSICIAN: Rhona Huff MD REASON FOR CONSULTATION: The patient is seen in pulmonary consultation at the request of Dr. Huff for abnormal x-ray. HISTORY OF PRESENT ILLNESS: The patient is an 86-year-old that fell at home, went to [facility] Emergency Room. There was some concern about possibility of a fracture. She was transferred to [place]. I was consulted for possible pulmonary clearance for surgery. The patient normally wears oxygen at home at 3 liters at rest, though she was asked to increase it to 4 liters with exertion. She sees Dr. Bearden up at the [facility]. She has been on oxygen for 3-5 years. She is short of breath. She normally walks in the house with a walker, normally does not get out much. She uses Stiolto on a regular basis and p.r.n. albuterol treatment. She has not been hospitalized recently with acute exacerbation of COPD. She has been told that she has COPD, but no history of interstitial lung disease. I reviewed her x-ray, which revealed increased lung markings, compatible with possible interstitial lung disease. She denies fever, chills or night sweats. PAST MEDICAL HISTORY: Otherwise remarkable for previous hypertension. She has underlying COPD, uses oxygen at home. She has had previous falls resulting in fractures. No history of diabetes. REVIEW OF SYSTEMS: As indicated above, otherwise other systems were reviewed and negative. CURRENT MEDICATIONS: List was reviewed. She is on nebulizer treatments along with Pulmicort, receiving heparin 5000 q. 8 hours. ALLERGIES: MULTIPLE ALLERGIES TO PENICILLIN, TO STATINS, GABAPENTIN AND TRAMADOL. PHYSICAL EXAMINATION: VITAL SIGNS: Stable. She was in no respiratory distress, currently on 4 liters, saturation 98%. HEENT: Eyes: The sclerae were nonicteric. NECK: Jugular venous distention was not elevated. No lymphadenopathy. CHEST: Full expansion. LUNGS: Slight crackles, no wheezes. CARDIOVASCULAR: Regular rate and rhythm with S1, S2, no S3. ABDOMEN: Soft. EXTREMITIES: No clubbing or cyanosis. Minimal edema. LABORATORY DATA: Reviewed. White count slightly elevated. Electrolytes were noted. IMPRESSION: 1. Abnormal x-ray, compatible with a history of chronic obstructive pulmonary disease, possible mild interstitial lung disease. 2. Chronic respiratory failure. 3. Recent fall, possible right hip fracture. 4. Rhabdomyolysis. PLAN: Respiratory status appears to be compensated, apparently the patient does not require any further orthopedic interventions. Continue current support. I do appreciate the privilege in sharing in the patient's care. DYLAN/ESTELITA/SHERICE DR: [place] TID: [id number]
--- NOTE | 2021-12-20 10:46 | PDOC2 ---
CONSULT Date of Consult Date of Consult DATE: 12/20/21 TIME: 10:20 Reason for Consult Reason for Consult: generalized pain Referring Physician Referring Physician: Identification/Chief Complaint Chief Complaint Pain all over her body since she fell off bed 2 days ago. History of Present Illness Reason for Visit: This is an 86 year old right handed female with known aseptic necrosis of left hip and previous kyphoplasty for lumbar vertebral compression fractures and COPD on home oxygen therapy at 4 liters per hour admits after she fell foreign bed 2 days ago and had radiological studies which revealed probable right femoral neck fracture and was transferred her for orthopedic evaluation and Mansoor Hamm plans to proceed with MRI scan of pelvis to rule out fracture. She had chronic low back and shoulder joint pain and stiffness and uses a cane and walker at home and she lives at e wiht her son and had 3 steps to manage to enter her home with railing. Past Medical History Cardiovascular: HTN Pulmonary: COPD CENTRAL NERVOUS SYSTEM: Periperal neuropathy GI: No pertinent hx Musculoskeletal: low back pain, Osteoarthritis, Muscle atrophy, Weakness, Stiffness Past Surgical History Past Surgical History She had radiological evidence of lumbar vertebral body kyphoplasty. 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 Peripheral neuropathy with associated bilateral carpal tunnel syndrome. 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 COPD. Current Medications Current Medications Current Medications Morphine Sulfate (Morphine Sulfate) 2 mg PRN Q2HR PRN IVP PAIN Last administered on 12/20/21at 09:05; Start 12/18/21 at 23:15 Oxycodone/ Acetaminophen (Percocet 5/325) 2 tab PRN Q4HRS PRN PO pain severe Last administered on 12/20/21at 00:43; Start 12/18/21 at 23:15 Sodium Chloride 1,000 ml @ 80 mls/hr [id number] IV Last administered on 12/20/21at 00:15; Start 12/18/21 at 23:15 Amlodipine Besylate (Norvasc) 5 mg DAILY PO ; Start 12/18/21 at 00:00; Status Cancel Hydralazine HCl (Apresoline) 25 mg TID PO Last administered on 12/19/21at 00:06; Start 12/18/21 at 00:00; Stop 12/19/21 at 08:39; Status DC Oxycodone/ Acetaminophen (Percocet 5/325) 1 tab PRN Q4HRS PRN PO PAIN mild/mod Last administered on 12/19/21at 13:14; Start 12/19/21 at 00:00 Diltiazem HCl (Cardizem 24hr Cd) 240 mg DAILY PO Last administered on 12/20/21 09:14; Start 12/19/21 at 09:00 Docusate Sodium (Colace) 100 mg DAILY PO Last administered on 12/20/21 09:14; Start 12/19/21 at 09:00 Non-Formulary Medication (Tiotropium Br/ Olodaterol HCl (Stiolto Respimat Inhal [place])) 4 gm PRN QEVNG IH ; Start 12/19/21 at 08:45; Status UNV Albuterol/ Ipratropium (Duoneb) 3 ml RTQID NEB Last administered on 12/20/21at 07:07; Start 12/19/21 at 12:00 Gabapentin (Neurontin) 100 mg BID PO ; Start 12/19/21 at 09:00; Stop 12/19/21 at 08:50; Status DC Albuterol/ Ipratropium (Duoneb) 3 ml 1X ONCE NEB ; Start 12/19/21 at 08:45; Stop 12/19/21 at 08:48; Status DC Budesonide (Pulmicort) 0.5 mg RTBID NEB Last administered on 12/20/21at 07:07; Start 12/19/21 at 20:00 Heparin Sodium (Porcine) (Heparin Sodium) 5,000 unit Q8HRS SQ Last administered on 12/20/21at 06:12; Start 12/19/21 at 14:00 Vitamin D (Vitamin D3) 5,000 unit DAILY PO Last administered on 12/20/21 09:14; Start 12/19/21 at 09:00 Nystatin (Nystop) 1 helio BID TP Last administered on 12/19/21at 21:29; Start 12/19/21 at 14:00 Active Scripts Active Reported Ventolin Hfa Inhaler (Albuterol Sulfate) 18 Gm Hfa.aer.ad 2 Puff INH Q4HRS Hydralazine Hcl 50 Mg Tablet 1 Tab PO TID Methocarbamol 750 Mg Tablet 750 Mg PO TID Doxycycline Hyclate 100 Mg Tablet 1 Tab PO BID Prednisone 20 Mg Tablet 10 Tab PO DAILY Polyethylene Glycol 3350 2,500 Gm Powder 17 Gm PO DAILY Duoneb 0.5-3(2.5) Mg/3 Ml (Albuterol/Ipratropium) 3 Ml Ampul.neb 3 Ml NEB QID Hydroxyzine Hcl 25 Mg Tablet 1 Tab PO HS Docusate Sodium 100 Mg Capsule 1 Cap PO BID 7 Days Alprazolam 0.5 Mg Tablet 1 Tab PO Q12HR Proair Hfa Inhaler (Albuterol Sulfate) 8.5 Gm Hfa.aer.ad 2 Puff IH PRN Q4-6HRS PRN 21 Days Stiolto Respimat Inhal [place] (Tiotropium Br/Olodaterol HCl) 4 Gm Mist.inhal 4 Gm IH PRN QEVNG Colace (Docusate Sodium) 100 Mg Capsule 100 Mg PO PRN PRN Diltiazem 24Hr Cd (Diltiazem HCl) 240 Mg Cap.er.24h 1 Cap PO DAILY 30 Days Allergies Allergies: Coded Allergies: Penicillins (Verified Allergy, Intermediate, Hives, 12/18/21) gabapentin (Verified Allergy, Intermediate, Hives, 12/18/21) itchy and anxiety [id number] Reductase Inhibitor (Verified Allergy, Unknown, Hives, 12/18/21) not sure says itchy, hives and confused tramadol (Verified Adverse Reaction, Unknown, Anxiety, 12/18/21) Physical Exam General: Alert, Oriented X3, Cooperative, moderate distress HEENT: Other (decreased acuity of hearing.) Skin: Other (Abraded skin on her legs and knees.) Neuro: Normal speech, Normal tone, Cranial nerves 3-12 NL, Other (She had significant weakness of right rotator cuff muscles and she had decreased sensory perception in her feet and hands and absent ankle jerks bilaterally,other than that she had 3+/5 grade muscle strenght in all 4 extremities.) Psych/Mental Status: Mental status NL MUSCULOSKELETAL: Osteoarthritic changes both hands, Other (She had crepitus on ROM of her shoulders with diffuse tenderness to palpation over both shoulders and she had deformity of her wrist and fingers from DJD and she had tenderness to palpation over trochanteric bursa,sacroiliac joints bilaterally and she had painfully limited lef thip joint external rotation with shortening deformity of left thigh when compared to right and she had pain free and full ROM of her hip joint and she had painfully limited shoulder joint ROM,right>left and she had muscle atrophy of hand intrinsic muscles and positive Tinel's sign over median nerve at wrist.) Vitals VITALS Vital Signs Date Time Temp Pulse Resp B/P (MAP) Pulse Ox O2 Delivery O2 Flow Rate FiO2 12/20/21 09:14 73 154/69 12/20/21 09:05 Nasal Cannula 4.0 12/20/21 07:08 95 12/20/21 07:00 97.4 18 97.4 Labs Labs Laboratory Tests Test 12/19/21 04:40 12/19/21 08:15 12/20/21 03:20 White Blood Count 11.4 x10^3/uL (4.0-11.0) 8.7 x10^3/uL (4.0-11.0) Red Blood Count 3.54 x10^6/uL (3.50-5.40) 3.59 x10^6/uL (3.50-5.40) Hemoglobin 10.6 g/dL (12.0-15.5) 10.8 g/dL (12.0-15.5) Hematocrit 33.7 % (36.0-47.0) 34.5 % (36.0-47.0) Mean Corpuscular Volume 95 fL (79-100) 96 fL (79-100) Mean Corpuscular Hemoglobin 30 pg (25-35) 30 pg (25-35) Mean Corpuscular Hemoglobin Concent 32 g/dL (31-37) 31 g/dL (31-37) Red Cell Distribution Width 15.2 % (11.5-14.5) 15.2 % (11.5-14.5) Platelet Count 193 x10^3/uL (140-400) 228 x10^3/uL (140-400) Sodium Level 140 mmol/L (136-145) 139 mmol/L (136-145) Potassium Level 4.7 mmol/L (3.5-5.1) 4.5 mmol/L (3.5-5.1) Chloride Level 105 mmol/L (98-107) 106 mmol/L (98-107) Carbon Dioxide Level 30 mmol/L (21-32) 32 mmol/L (21-32) Anion Gap 5 (6-14) 1 (6-14) Blood Urea Nitrogen 38 mg/dL (7-20) 25 mg/dL (7-20) Creatinine 0.9 mg/dL (0.6-1.0) 0.8 mg/dL (0.6-1.0) Estimated GFR (Cockcroft-Gault) 59.5 68.2 Glucose Level 112 mg/dL (70-99) 98 mg/dL (70-99) Calcium Level 7.9 mg/dL (8.5-10.1) 8.3 mg/dL (8.5-10.1) Creatine Kinase 627 U/L (26-192) 254 U/L (26-192) Troponin I High Sensitivity 279 ng/L (4-50) 243 ng/L (4-50) Neutrophils (%) (Auto) 76 % (31-73) Lymphocytes (%) (Auto) 12 % (24-48) Monocytes (%) (Auto) 10 % (0-9) Eosinophils (%) (Auto) 1 % (0-3) Basophils (%) (Auto) 1 % (0-3) Neutrophils # (Auto) 6.6 x10^3/uL (1.8-7.7) Lymphocytes # (Auto) 1.0 x10^3/uL (1.0-4.8) Monocytes # (Auto) 0.9 x10^3/uL (0.0-1.1) Eosinophils # (Auto) 0.1 x10^3/uL (0.0-0.7) Basophils # (Auto) 0.1 x10^3/uL (0.0-0.2) BUN/Creatinine Ratio 31 (6-20) Ionized Calcium 1.23 mmol/L (1.13-1.32) Total Bilirubin 0.3 mg/dL (0.2-1.0) Aspartate Amino Transf (AST/SGOT) 39 U/L (15-37) Alanine Aminotransferase (ALT/SGPT) 42 U/L (14-59) Alkaline Phosphatase 96 U/L (46-116) Total Protein 6.6 g/dL (6.4-8.2) Albumin 3.0 g/dL (3.4-5.0) Albumin/Globulin Ratio 0.8 (1.0-1.7) Laboratory Tests Test 12/20/21 03:20 White Blood Count 8.7 x10^3/uL (4.0-11.0) Red Blood Count 3.59 x10^6/uL (3.50-5.40) Hemoglobin 10.8 g/dL (12.0-15.5) Hematocrit 34.5 % (36.0-47.0) Mean Corpuscular Volume 96 fL (79-100) Mean Corpuscular Hemoglobin 30 pg (25-35) Mean Corpuscular Hemoglobin Concent 31 g/dL (31-37) Red Cell Distribution Width 15.2 % (11.5-14.5) Platelet Count 228 x10^3/uL (140-400) Neutrophils (%) (Auto) 76 % (31-73) Lymphocytes (%) (Auto) 12 % (24-48) Monocytes (%) (Auto) 10 % (0-9) Eosinophils (%) (Auto) 1 % (0-3) Basophils (%) (Auto) 1 % (0-3) Neutrophils # (Auto) 6.6 x10^3/uL (1.8-7.7) Lymphocytes # (Auto) 1.0 x10^3/uL (1.0-4.8) Monocytes # (Auto) 0.9 x10^3/uL (0.0-1.1) Eosinophils # (Auto) 0.1 x10^3/uL (0.0-0.7) Basophils # (Auto) 0.1 x10^3/uL (0.0-0.2) Sodium Level 139 mmol/L (136-145) Potassium Level 4.5 mmol/L (3.5-5.1) Chloride Level 106 mmol/L (98-107) Carbon Dioxide Level 32 mmol/L (21-32) Anion Gap 1 (6-14) Blood Urea Nitrogen 25 mg/dL (7-20) Creatinine 0.8 mg/dL (0.6-1.0) Estimated GFR (Cockcroft-Gault) 68.2 BUN/Creatinine Ratio 31 (6-20) Glucose Level 98 mg/dL (70-99) Calcium Level 8.3 mg/dL (8.5-10.1) Ionized Calcium 1.23 mmol/L (1.13-1.32) Total Bilirubin 0.3 mg/dL (0.2-1.0) Aspartate Amino Transf (AST/SGOT) 39 U/L (15-37) Alanine Aminotransferase (ALT/SGPT) 42 U/L (14-59) Alkaline Phosphatase 96 U/L (46-116) Creatine Kinase 254 U/L (26-192) Total Protein 6.6 g/dL (6.4-8.2) Albumin 3.0 g/dL (3.4-5.0) Albumin/Globulin Ratio 0.8 (1.0-1.7) Images Images X-ray pelvis revealed aseptic necrosis of left femoral head and early DJD of rihgt hip joint and DDD of lumbar vertebrae. 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 Rotator cuff arthropathy,right>left. DDD of lumbar vertebrae with chronic low back pain. Bilateral trochanteric bursitis. COPD. Rec: To obtain follow up x-ray of right hip while waiting for MRI scan of pelvis to rule out any occult fracture right hip. I am not sure she is a candidate for left GISEL. RADHA SIERRA MD Dec 20, 2021 10:46
[2021-12-20 10:57] VITALS: BP 153/76
[2021-12-20] MEDS: MUPIROCIN 2 % OINTMENT 22GM TUBE. TP SCH ×2 (11:30→20:17)
--- NOTE | 2021-12-20 13:26 | NUR ---
Attempted to insert another peripheral IV was unsuccessful. Verbal approval from Dr Huff to not have IV.
--- NOTE | 2021-12-20 14:47 | NUR ---
SS following for discharge planning. SS reviewed pt chart and discussed with pt RN. Pt is from home and is currently requiring oxygen at four liters nasal canula. PT/OT recommended intermediate unit. MRI of Pelvis ordered. Dr. Gaxiola, Ortho, and Pulmonology following. SS contacted pt's son and discussed discharge planning and intermediate unit. Pt's son requesting referrals to [facility] ,[phone]; fax [phone], and [facility], , fax [phone], when medically ready. COVID19 PCR test will be required for placement. Pt's RN notified. SS will continue to follow for discharge planning.
[2021-12-20 15:00] VITALS: BP 190/80
--- NOTE | 2021-12-20 16:05 | RAD ---
XR RIGHT HIP (WITH OR WITHOUT PELVIS) 2 VIEWS History: Reason: f/u as x-rays at [facility] done on 12/18/21 shows possible fracture / Spl. In structions: / History: Technique: AP view the pelvis and 2 additional views of the right hip. Comparison: December 18, 2021. Findings: Persistent linear lucency within the right femoral neck with cortical disruption laterally. No disloc ation. Advanced left hip degenerative changes with remodeling of the femoral head acetabulum. Lower l umbar spondylosis. Vascular calcifications. Large colonic stool burden. Impression: 1. Persistent linear lucency within the right femoral neck with cortical disruption, concerning for nondisplaced fracture. MRI can confirm if clinically indicated. Electronically signed by: Rober Morocho DO (12/20/2021 4:03 PM) [id number]
--- NOTE | 2021-12-20 16:41 | PDOC ---
[employer] PROGRESS NOTE Date of Service DOS: DATE: 12/20/21 TIME: 16:41 Chief Complaint Chief Complaint RIght hip injury, not a fracture, ortho following, COPD, with tachypnea, pulm following rhabdomyolysis, CK was 1480 for admit, better, iv fluid given cognitive decline, hip pain, 2 prn pain meds, noted allergy to gabapentin Vitals/I&O Vitals/I&O: Vital Signs Date Time Temp Pulse Resp B/P (MAP) Pulse Ox O2 Delivery O2 Flow Rate FiO2 12/20/21 15:05 Nasal Cannula 4.0 12/20/21 15:00 98.5 84 18 190/80 (116) 93 98.5 I & O 12/19/21 12/19/21 12/20/21 15:00 23:00 07:00 Intake Total 200 ml 220 ml Output Total 600 ml Balance 200 ml -380 ml Physical Exam General: Alert, Oriented X3, Cooperative, moderate distress Heart: Regular rate Abdomen: Soft, No tenderness Extremities: No edema, Normal pulses Skin: Other (Abraded skin on her legs and knees.) Labs Labs: Laboratory Tests Test 12/20/21 03:20 White Blood Count 8.7 x10^3/uL (4.0-11.0) Red Blood Count 3.59 x10^6/uL (3.50-5.40) Hemoglobin 10.8 g/dL (12.0-15.5) Hematocrit 34.5 % (36.0-47.0) Mean Corpuscular Volume 96 fL (79-100) Mean Corpuscular Hemoglobin 30 pg (25-35) Mean Corpuscular Hemoglobin Concent 31 g/dL (31-37) Red Cell Distribution Width 15.2 % (11.5-14.5) Platelet Count 228 x10^3/uL (140-400) Neutrophils (%) (Auto) 76 % (31-73) Lymphocytes (%) (Auto) 12 % (24-48) Monocytes (%) (Auto) 10 % (0-9) Eosinophils (%) (Auto) 1 % (0-3) Basophils (%) (Auto) 1 % (0-3) Neutrophils # (Auto) 6.6 x10^3/uL (1.8-7.7) Lymphocytes # (Auto) 1.0 x10^3/uL (1.0-4.8) Monocytes # (Auto) 0.9 x10^3/uL (0.0-1.1) Eosinophils # (Auto) 0.1 x10^3/uL (0.0-0.7) Basophils # (Auto) 0.1 x10^3/uL (0.0-0.2) Sodium Level 139 mmol/L (136-145) Potassium Level 4.5 mmol/L (3.5-5.1) Chloride Level 106 mmol/L (98-107) Carbon Dioxide Level 32 mmol/L (21-32) Anion Gap 1 (6-14) Blood Urea Nitrogen 25 mg/dL (7-20) Creatinine 0.8 mg/dL (0.6-1.0) Estimated GFR (Cockcroft-Gault) 68.2 BUN/Creatinine Ratio 31 (6-20) Glucose Level 98 mg/dL (70-99) Calcium Level 8.3 mg/dL (8.5-10.1) Ionized Calcium 1.23 mmol/L (1.13-1.32) Total Bilirubin 0.3 mg/dL (0.2-1.0) Aspartate Amino Transf (AST/SGOT) 39 U/L (15-37) Alanine Aminotransferase (ALT/SGPT) 42 U/L (14-59) Alkaline Phosphatase 96 U/L (46-116) Creatine Kinase 254 U/L (26-192) Total Protein 6.6 g/dL (6.4-8.2) Albumin 3.0 g/dL (3.4-5.0) Albumin/Globulin Ratio 0.8 (1.0-1.7) Comment Review of Relevant I have reviewed the following items shahram (where applicable) has been applied. Medications: Current Medications Medications (Trade) Dose Ordered Sig/Megan Route PRN Reason Start Time Stop Time Status Last Admin Dose Admin Budesonide (Pulmicort) 0.5 mg RTBID NEB 12/19/21 20:00 12/20/21 07:07 Justifications for Admission Other Justification IZABELA PELAYO MD Dec 20, 2021 16:41
[2021-12-20 19:19] VITALS: BP 171/67
[2021-12-20] MEDS: ALPRAZolam 0.5 MG TABLET PO SCH (21:06)
[2021-12-20 22:46] VITALS: BP 155/77
[2021-12-21 03:00] VITALS: BP 184/83
[2021-12-21] MEDS: HEPARIN for SUB-Q USE 5,000 UNIT/ML VIAL. SQ SCH ×3 (05:58→20:33)
[2021-12-21 07:00] VITALS: BP 166/85
[2021-12-21] MEDS: BUDESONIDE 0.5 MG/2 ML NEBU. NEB SCH ×2 (07:36→20:01)
[2021-12-21] MEDS: IPRATRPIUM/ALBUTEROL 0.5/2.5MG 3 ML NEBU. NEB SCH ×4 (07:36→20:01)
[2021-12-21] MEDS: NYSTATIN TOPICAL POWDER 15GM BOTTLE. TP SCH ×2 (09:00→20:33)
[2021-12-21] MEDS: MUPIROCIN 2 % OINTMENT 22GM TUBE. TP SCH ×2 (09:00→20:32)
--- NOTE | 2021-12-21 09:12 | PDOC ---
PROGRESS NOTES Date of Service DATE: 12/21/21 TIME: 09:07 Subjective Subjective She admits continued pain in her feet and back and wants to have a shower. Objective Objective Vital Signs Date Time Temp Pulse Resp B/P (MAP) Pulse Ox O2 Delivery O2 Flow Rate FiO2 12/21/21 07:38 98 Nasal Cannula 4.0 12/21/21 07:00 97.4 77 19 166/85 (112) 97.4 Intake and Output 12/21/21 07:00 Intake Total 1200 ml Output Total 800 ml Balance 400 ml Intake Oral 1200 ml Output Urine Total 800 ml Physical Exam Physical Exam She is alert,supine in bed with head end propped up and she continues with pain on ROM of left hip joint and lumbar spine and SLR test is negative and x-rays of pelvis and right hip again revealed lucency and cortical disruption of right femoral neck and 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 Plan Plan of Care Waiting for MRI scan to rule out fracture neck right femur.and to work on her constipation. She may benefit from gabapentin to help wiht her foot pain. Comment Review of Relevant I have reviewed the following items shahram (where applicable) has been applied. Labs Laboratory Tests Test 12/20/21 03:20 White Blood Count 8.7 x10^3/uL (4.0-11.0) Red Blood Count 3.59 x10^6/uL (3.50-5.40) Hemoglobin 10.8 g/dL (12.0-15.5) Hematocrit 34.5 % (36.0-47.0) Mean Corpuscular Volume 96 fL (79-100) Mean Corpuscular Hemoglobin 30 pg (25-35) Mean Corpuscular Hemoglobin Concent 31 g/dL (31-37) Red Cell Distribution Width 15.2 % (11.5-14.5) Platelet Count 228 x10^3/uL (140-400) Neutrophils (%) (Auto) 76 % (31-73) Lymphocytes (%) (Auto) 12 % (24-48) Monocytes (%) (Auto) 10 % (0-9) Eosinophils (%) (Auto) 1 % (0-3) Basophils (%) (Auto) 1 % (0-3) Neutrophils # (Auto) 6.6 x10^3/uL (1.8-7.7) Lymphocytes # (Auto) 1.0 x10^3/uL (1.0-4.8) Monocytes # (Auto) 0.9 x10^3/uL (0.0-1.1) Eosinophils # (Auto) 0.1 x10^3/uL (0.0-0.7) Basophils # (Auto) 0.1 x10^3/uL (0.0-0.2) Sodium Level 139 mmol/L (136-145) Potassium Level 4.5 mmol/L (3.5-5.1) Chloride Level 106 mmol/L (98-107) Carbon Dioxide Level 32 mmol/L (21-32) Anion Gap 1 (6-14) Blood Urea Nitrogen 25 mg/dL (7-20) Creatinine 0.8 mg/dL (0.6-1.0) Estimated GFR (Cockcroft-Gault) 68.2 BUN/Creatinine Ratio 31 (6-20) Glucose Level 98 mg/dL (70-99) Calcium Level 8.3 mg/dL (8.5-10.1) Ionized Calcium 1.23 mmol/L (1.13-1.32) Total Bilirubin 0.3 mg/dL (0.2-1.0) Aspartate Amino Transf (AST/SGOT) 39 U/L (15-37) Alanine Aminotransferase (ALT/SGPT) 42 U/L (14-59) Alkaline Phosphatase 96 U/L (46-116) Creatine Kinase 254 U/L (26-192) Total Protein 6.6 g/dL (6.4-8.2) Albumin 3.0 g/dL (3.4-5.0) Albumin/Globulin Ratio 0.8 (1.0-1.7) Medications Current Medications Morphine Sulfate (Morphine Sulfate) 2 mg PRN Q2HR PRN IVP PAIN Last administered on 12/20/21at 09:05; Start 12/18/21 at 23:15 Oxycodone/ Acetaminophen (Percocet 5/325) 2 tab PRN Q4HRS PRN PO pain severe Last administered on 12/20/21at 20:17; Start 12/18/21 at 23:15 Sodium Chloride 1,000 ml @ 80 mls/hr [id number] IV Last administered on 12/20/21at 00:15; Start 12/18/21 at 23:15; Stop 12/20/21 at 20:33; Status DC Amlodipine Besylate (Norvasc) 5 mg DAILY PO ; Start 12/18/21 at 00:00; Status Cancel Hydralazine HCl (Apresoline) 25 mg TID PO Last administered on 12/19/21at 00:06; Start 12/18/21 at 00:00; Stop 12/19/21 at 08:39; Status DC Oxycodone/ Acetaminophen (Percocet 5/325) 1 tab PRN Q4HRS PRN PO PAIN mild/mod Last administered on 12/19/21at 13:14; Start 12/19/21 at 00:00 Diltiazem HCl (Cardizem 24hr Cd) 240 mg DAILY PO Last administered on 12/20/21at 09:14; Start 12/19/21 at 09:00 Docusate Sodium (Colace) 100 mg DAILY PO Last administered on 12/20/21at 09:14; Start 12/19/21 at 09:00 Non-Formulary Medication (Tiotropium Br/ Olodaterol HCl (Stiolto Respimat Inhal [place])) 4 gm PRN QEVNG IH ; Start 12/19/21 at 08:45; Status UNV Albuterol/ Ipratropium (Duoneb) 3 ml RTQID NEB Last administered on 12/21/21at 07:36; Start 12/19/21 at 12:00 Gabapentin (Neurontin) 100 mg BID PO ; Start 12/19/21 at 09:00; Stop 12/19/21 at 08:50; Status DC Albuterol/ Ipratropium (Duoneb) 3 ml 1X ONCE NEB ; Start 12/19/21 at 08:45; Stop 12/19/21 at 08:48; Status DC Budesonide (Pulmicort) 0.5 mg RTBID NEB Last administered on 12/21/21at 07:36; Start 12/19/21 at 20:00 Heparin Sodium (Porcine) (Heparin Sodium) 5,000 unit Q8HRS SQ Last administered on 12/21/21at 05:58; Start 12/19/21 at 14:00 Vitamin D (Vitamin D3) 5,000 unit DAILY PO Last administered on 12/20/21at 09:14; Start 12/19/21 at 09:00 Nystatin (Nystop) 1 helio BID TP Last administered on 12/20/21at 20:18; Start 12/19/21 at 14:00 Mupirocin (Bactroban) 1 helio BID TP Last administered on 12/20/21at 20:17; Start 12/20/21 at 11:30 Polyethylene Glycol (miraLAX PACKET) 17 gm DAILY PO ; Start 12/21/21 at 09:00 Alprazolam (Xanax) 0.5 mg Q12HR PO Last administered on 12/20/21at 21:06; Start 12/20/21 at 21:00 Active Scripts Active Reported Ventolin Hfa Inhaler (Albuterol Sulfate) 18 Gm Hfa.aer.ad 2 Puff INH Q4HRS Hydralazine Hcl 50 Mg Tablet 1 Tab PO TID Methocarbamol 750 Mg Tablet 750 Mg PO TID Doxycycline Hyclate 100 Mg Tablet 1 Tab PO BID Prednisone 20 Mg Tablet 10 Tab PO DAILY Polyethylene Glycol 3350 2,500 Gm Powder 17 Gm PO DAILY Duoneb 0.5-3(2.5) Mg/3 Ml (Albuterol/Ipratropium) 3 Ml Ampul.neb 3 Ml NEB QID Hydroxyzine Hcl 25 Mg Tablet 1 Tab PO HS Docusate Sodium 100 Mg Capsule 1 Cap PO BID 7 Days Alprazolam 0.5 Mg Tablet 1 Tab PO Q12HR Proair Hfa Inhaler (Albuterol Sulfate) 8.5 Gm Hfa.aer.ad 2 Puff IH PRN Q4-6HRS PRN 21 Days Stiolto Respimat Inhal [place] (Tiotropium Br/Olodaterol HCl) 4 Gm Mist.inhal 4 Gm IH PRN QEVNG Colace (Docusate Sodium) 100 Mg Capsule 100 Mg PO PRN PRN Diltiazem 24Hr Cd (Diltiazem HCl) 240 Mg Cap.er.24h 1 Cap PO DAILY 30 Days Vitals/I & O Vital Sign - Last 24 Hours 12/20/21 12/20/21 12/20/21 12/20/21 09:14 09:35 10:57 11:24 Temp 98.2 98.2 Pulse 73 85 Resp 19 B/P (MAP) 154/69 153/76 (101) Pulse Ox 94 O2 Delivery Nasal Cannula Nasal Cannula Nasal Cannula O2 Flow Rate 4.0 4.0 4.0 12/20/21 12/20/21 12/20/21 12/20/21 15:00 15:05 19:19 19:20 Temp 98.5 98.3 98.5 98.3 Pulse 84 96 Resp 18 B/P (MAP) 190/80 (116) 171/67 (101) Pulse Ox 93 94 O2 Delivery Nasal Cannula Nasal Cannula Nasal Cannula Nasal Cannula O2 Flow Rate 4.0 4.0 4.0 4.0 12/20/21 12/20/21 12/20/21 12/20/21 20:17 20:47 21:16 21:16 Resp 18 Pulse Ox 96 96 94 94 O2 Delivery Nasal Cannula Nasal Cannula Nasal Cannula Nasal Cannula O2 Flow Rate 4.0 4.0 4.0 12/20/21 12/21/21 12/21/21 12/21/21 22:46 03:00 07:00 07:36 Temp 98.3 98.0 97.4 98.3 98.0 97.4 Pulse 90 90 77 Resp 18 18 19 B/P (MAP) 155/77 (103) 184/83 (116) 166/85 (112) Pulse Ox 96 96 99 98 O2 Delivery Nasal Cannula Nasal Cannula Nasal Cannula Nasal Cannula O2 Flow Rate 4.0 4.0 4.0 4.0 12/21/21 07:38 Pulse Ox 98 O2 Delivery Nasal Cannula O2 Flow Rate 4.0 Intake and Output 12/20/21 12/20/21 12/21/21 15:00 23:00 07:00 Intake Total 360 ml 500 ml 340 ml Output Total 800 ml Balance 360 ml 500 ml -460 ml Justifications for Admission Other Justification RADHA SIERRA MD Dec 21, 2021 09:12
[2021-12-21] MEDS ORDERED: BISACODYL 10 MG SUPP.RECT. PR PRN (09:15)
[2021-12-21] MEDS ORDERED: DOCUSATE SODIUM 283 MG/5 ML ENEMA. PR PRN (09:15)
[2021-12-21] MEDS: DOCUSATE SODIUM 100 MG CAPSULE. PO SCH (09:47)
[2021-12-21] MEDS: POLYETHYLENE GLYCOL 3350 17 GM PACKET. PO SCH (09:47)
[2021-12-21] MEDS: CHOLECALCIFEROL (VITAMIN D3) 5,000 UNIT CAPSULE PO SCH (09:48)
[2021-12-21] MEDS: ALPRAZolam 0.5 MG TABLET PO SCH ×2 (09:48→20:32)
--- NOTE | 2021-12-21 09:59 | PDOC ---
PULMONARY PROGRESS NOTES DATE: 12/21/21 TIME: 09:59 Subjective Patient not more short of air, continues to have great pain mainly all over more activity Vitals Vital Signs Date Time Temp Pulse Resp B/P (MAP) Pulse Ox O2 Delivery O2 Flow Rate FiO2 12/21/21 09:49 77 166/85 12/21/21 07:38 98 Nasal Cannula 4.0 12/21/21 07:00 97.4 19 97.4 ROS: No Nausea, No Chest Pain, No Abdominal Pain, No Increase Cough General: Alert Cardiovascular: S1, S2 Abdomen: Soft Neuro Exam: Alert Extremities: No Edema Labs Laboratory Tests Test 12/20/21 03:20 White Blood Count 8.7 x10^3/uL (4.0-11.0) Red Blood Count 3.59 x10^6/uL (3.50-5.40) Hemoglobin 10.8 g/dL (12.0-15.5) Hematocrit 34.5 % (36.0-47.0) Mean Corpuscular Volume 96 fL (79-100) Mean Corpuscular Hemoglobin 30 pg (25-35) Mean Corpuscular Hemoglobin Concent 31 g/dL (31-37) Red Cell Distribution Width 15.2 % (11.5-14.5) Platelet Count 228 x10^3/uL (140-400) Neutrophils (%) (Auto) 76 % (31-73) Lymphocytes (%) (Auto) 12 % (24-48) Monocytes (%) (Auto) 10 % (0-9) Eosinophils (%) (Auto) 1 % (0-3) Basophils (%) (Auto) 1 % (0-3) Neutrophils # (Auto) 6.6 x10^3/uL (1.8-7.7) Lymphocytes # (Auto) 1.0 x10^3/uL (1.0-4.8) Monocytes # (Auto) 0.9 x10^3/uL (0.0-1.1) Eosinophils # (Auto) 0.1 x10^3/uL (0.0-0.7) Basophils # (Auto) 0.1 x10^3/uL (0.0-0.2) Sodium Level 139 mmol/L (136-145) Potassium Level 4.5 mmol/L (3.5-5.1) Chloride Level 106 mmol/L (98-107) Carbon Dioxide Level 32 mmol/L (21-32) Anion Gap 1 (6-14) Blood Urea Nitrogen 25 mg/dL (7-20) Creatinine 0.8 mg/dL (0.6-1.0) Estimated GFR (Cockcroft-Gault) 68.2 BUN/Creatinine Ratio 31 (6-20) Glucose Level 98 mg/dL (70-99) Calcium Level 8.3 mg/dL (8.5-10.1) Ionized Calcium 1.23 mmol/L (1.13-1.32) Total Bilirubin 0.3 mg/dL (0.2-1.0) Aspartate Amino Transf (AST/SGOT) 39 U/L (15-37) Alanine Aminotransferase (ALT/SGPT) 42 U/L (14-59) Alkaline Phosphatase 96 U/L (46-116) Creatine Kinase 254 U/L (26-192) Total Protein 6.6 g/dL (6.4-8.2) Albumin 3.0 g/dL (3.4-5.0) Albumin/Globulin Ratio 0.8 (1.0-1.7) Medications Active Scripts Medications Dose Route/Sig Max Daily Dose Days Date Category Proair Hfa Inhaler (Albuterol Sulfate) 8.5 Gm Hfa.aer.ad 2 Puff IH PRN Q4-6HRS PRN 21 12/19/21 Reported Stiolto Respimat Inhal [place] (Tiotropium Br/Olodaterol HCl) 4 Gm Mist.inhal 4 Gm IH PRN QEVNG 12/19/21 Reported Colace (Docusate Sodium) 100 Mg Capsule 100 Mg PO PRN PRN 12/19/21 Reported Diltiazem 24Hr Cd (Diltiazem HCl) 240 Mg Cap.er.24h 1 Cap PO DAILY 30 12/19/21 Reported Impression . IMPRESSION: 1. Abnormal x-ray, compatible with a history of chronic obstructive pulmonary disease, possible mild interstitial lung disease. 2. Chronic respiratory failure. 3. Recent fall, possible right hip fracture. 4. Rhabdomyolysis. MRI IMPRESSION: 1. Severe increased T2 signal/edema identified in the bilateral adductor muscles left greater than right could be severe muscle strain or interstitial muscle tear. 2. Mild increased T2 signal with corresponding subtle low T1 signal identified in the right femoral neck could be very subtle subacute/age indeterminate/stress fracture with cortical defect. 3. Severe degenerative changes left hip joint. 4. Small amount of fluid identified in the right trochanter bursa likely bursitis. Plan . 12/[address] Max MRI pending Continue current support 12/18 PLAN: Respiratory status appears to be compensated, apparently the patient does not require any further orthopedic interventions. Continue current support. I do appreciate the privilege in sharing in the patient's care. BRITNEY ELIZABETH MD Dec 21, 2021 09:59
--- NOTE | 2021-12-21 12:10 | RAD ---
Examination: MRI of the pelvis without contrast HISTORY: History of fall, pain COMPARISON: None TECHNIQUE: Multiplanar, multisequence MR imaging of the pelvis were performed without contrast FINDINGS: The bilateral femoral heads within the acetabula. There is severe joint space loss left hip joint lik georgette severe degenerative changes with irregularity of the head of the left femur likely degenerative c hanges. Small bilateral hip effusions. There is severe increased T2 signal/edema identified in the bilateral adductor muscles left greater t etienne right could be severe muscle strain or interstitial muscle tear. There is mild increased T2 signal with corresponding subtle low T1 signal identified in the right fem oral neck. Small amount of fluid identified in the right trochanter bursa. Small amount of fluid iden tified along the left iliacus muscle. The attachment of the hamstring tendon to the ischial tuberosity, attachment of the gluteal tendons t o the greater trochanter, attachment of the iliopsoas tendon to the lesser trochanter and the attachm ent of the rectus femoris tendon to the anterior inferior iliac spine grossly appears intact. IMPRESSION: 1. Severe increased T2 signal/edema identified in the bilateral adductor muscles left greater than r ight could be severe muscle strain or interstitial muscle tear. 2. Mild increased T2 signal with corresponding subtle low T1 signal identified in the right femoral neck could be very subtle subacute/age indeterminate/stress fracture with cortical defect. 3. Severe degenerative changes left hip joint. 4. Small amount of fluid identified in the right trochanter bursa likely bursitis. Electronically signed by: Rubens Rene MD (12/21/2021 12:08 PM) [id number]
--- NOTE | 2021-12-21 13:36 | NUR ---
SS following up with discharge planning. SS reviewed pt chart and discussed with pt RN. Pt is currently requiring oxygen at four liters nasal canula. Pt had MRI of Pelvis today. Ortho and Dr. Minor woods. Currently awaiting Ortho recommendations at this time. PT/OT ordered. PT recommended [facility]. Pt's son requesting referrals to [facility] ,[phone]; fax [phone], and [facility], , fax [phone], when medically ready. COVID19 PCR test will be required for placement. Pt's RN notified. SS will continue to follow for discharge planning.
[2021-12-21] MEDS: MAGNESIUM HYDROXIDE 2,400 MG/30 ML ORAL.SUSP. PO PRN ×2 (14:31→14:32)
[2021-12-21 15:00] VITALS: BP 155/72
--- NOTE | 2021-12-21 15:47 | PDOC ---
[employer] PROGRESS NOTE Date of Service DOS: DATE: 12/21/21 TIME: 15:45 Chief Complaint Chief Complaint RIght hip injury, not a fracture, ortho following, COPD, with tachypnea, pulm following rhabdomyolysis, CK was 1480 for admit, better, iv fluid given cognitive decline, hip pain, 2 prn pain meds, noted allergy to gabapentin History of Present Illness History of Present Illness pain ok if not moving, sever pain when trying to stand discussed iwth her son, Eddie by phone, OK with alvin balderas, will place order Vitals/I&O Vitals/I&O: Vital Signs Date Time Temp Pulse Resp B/P (MAP) Pulse Ox O2 Delivery O2 Flow Rate FiO2 12/21/21 15:19 98 Nasal Cannula 4.0 12/21/21 09:49 77 166/85 12/21/21 07:00 97.4 19 97.4 I & O 12/20/21 12/20/21 12/21/21 15:00 23:00 07:00 Intake Total 360 ml 500 ml 340 ml Output Total 800 ml Balance 360 ml 500 ml -460 ml Physical Exam General: Alert, Oriented X3, Cooperative, moderate distress Heart: Regular rate Abdomen: Soft, No tenderness Extremities: No edema, Normal pulses Skin: Other (Abraded skin on her legs and knees.) Comment Review of Relevant I have reviewed the following items shahram (where applicable) has been applied. Medications: Current Medications Medications (Trade) Dose Ordered Sig/Megan Route PRN Reason Start Time Stop Time Status Last Admin Dose Admin Polyethylene Glycol (miraLAX PACKET) 17 gm DAILY PO 12/21/21 09:00 12/21/21 09:47 Alprazolam (Xanax) 0.5 mg Q12HR PO 12/20/21 21:00 12/21/21 09:48 Magnesium Hydroxide (Milk Of Magnesia) 2,400 mg PRN DAILY PRN PO CONSTIPATION 12/21/21 09:15 12/21/21 14:32 Justifications for Admission Other Justification IZABELA PELAYO MD Dec 21, 2021 15:47
[2021-12-21] MEDS ORDERED: OXYC1TAB15 PO (15:55)
[2021-12-21] MEDS ORDERED: CHOL5000 PO (15:55)
[2021-12-21] MEDS ORDERED: ALPR0.5T6 PO (15:55)
[2021-12-21 19:19] VITALS: BP 179/87
--- NOTE | 2021-12-21 19:54 | PDOC ---
ORTHO PROGRESS NOTES DATE: 12/21/21 TIME: 19:49 Subjective No change in complaints today Vitals Vital Signs Date Time Temp Pulse Resp B/P (MAP) Pulse Ox O2 Delivery O2 Flow Rate FiO2 12/21/21 19:19 97.4 94 19 179/87 (117) 93 Nasal Cannula 4.0 97.4 Labs Laboratory Tests Test 12/20/21 03:20 White Blood Count 8.7 x10^3/uL (4.0-11.0) Red Blood Count 3.59 x10^6/uL (3.50-5.40) Hemoglobin 10.8 g/dL (12.0-15.5) Hematocrit 34.5 % (36.0-47.0) Mean Corpuscular Volume 96 fL (79-100) Mean Corpuscular Hemoglobin 30 pg (25-35) Mean Corpuscular Hemoglobin Concent 31 g/dL (31-37) Red Cell Distribution Width 15.2 % (11.5-14.5) Platelet Count 228 x10^3/uL (140-400) Neutrophils (%) (Auto) 76 % (31-73) Lymphocytes (%) (Auto) 12 % (24-48) Monocytes (%) (Auto) 10 % (0-9) Eosinophils (%) (Auto) 1 % (0-3) Basophils (%) (Auto) 1 % (0-3) Neutrophils # (Auto) 6.6 x10^3/uL (1.8-7.7) Lymphocytes # (Auto) 1.0 x10^3/uL (1.0-4.8) Monocytes # (Auto) 0.9 x10^3/uL (0.0-1.1) Eosinophils # (Auto) 0.1 x10^3/uL (0.0-0.7) Basophils # (Auto) 0.1 x10^3/uL (0.0-0.2) Sodium Level 139 mmol/L (136-145) Potassium Level 4.5 mmol/L (3.5-5.1) Chloride Level 106 mmol/L (98-107) Carbon Dioxide Level 32 mmol/L (21-32) Anion Gap 1 (6-14) Blood Urea Nitrogen 25 mg/dL (7-20) Creatinine 0.8 mg/dL (0.6-1.0) Estimated GFR (Cockcroft-Gault) 68.2 BUN/Creatinine Ratio 31 (6-20) Glucose Level 98 mg/dL (70-99) Calcium Level 8.3 mg/dL (8.5-10.1) Ionized Calcium 1.23 mmol/L (1.13-1.32) Total Bilirubin 0.3 mg/dL (0.2-1.0) Aspartate Amino Transf (AST/SGOT) 39 U/L (15-37) Alanine Aminotransferase (ALT/SGPT) 42 U/L (14-59) Alkaline Phosphatase 96 U/L (46-116) Creatine Kinase 254 U/L (26-192) Total Protein 6.6 g/dL (6.4-8.2) Albumin 3.0 g/dL (3.4-5.0) Albumin/Globulin Ratio 0.8 (1.0-1.7) X-Rays MRI reviewed, discussed with radiology Notes A and A in bed no pain with logrolling, no gross abnormalities Problems: (1) Bilateral hip pain (2) Strain of muscle of hip (3) Hip pain, bilateral Assessment and Plan Given her presentation and reported symptoms, and discussin MRI finding with Radiologist, stress fracture seems unlikely. OK to mobilize patient and WBAT, ok to D/C from my standpoint ANA LENNON II, MD Dec 21, 2021 19:54
[2021-12-21] MEDS: oxyCODONE/APAP 5/325 1 TAB TABLET PO PRN (20:30)
[2021-12-21 22:49] VITALS: BP 154/78
[2021-12-22] MEDS: oxyCODONE/APAP 5/325 1 TAB TABLET PO PRN ×3 (02:47→21:27)
[2021-12-22 03:03] VITALS: BP 161/90
[2021-12-22] MEDS: HEPARIN for SUB-Q USE 5,000 UNIT/ML VIAL. SQ SCH ×3 (06:06→21:35)
[2021-12-22 07:00] VITALS: BP 181/85
[2021-12-22] MEDS: BUDESONIDE 0.5 MG/2 ML NEBU. NEB SCH ×2 (07:24→20:48)
[2021-12-22] MEDS: IPRATRPIUM/ALBUTEROL 0.5/2.5MG 3 ML NEBU. NEB SCH ×4 (07:24→20:48)
--- NOTE | 2021-12-22 08:20 | PDOC ---
PULMONARY PROGRESS NOTES DATE: 12/22/21 TIME: 08:20 Subjective No overnight events patient not more short of air, continues to have great pain mainly all over more activity Vitals Vital Signs Date Time Temp Pulse Resp B/P (MAP) Pulse Ox O2 Delivery O2 Flow Rate FiO2 12/22/21 07:28 98 Nasal Cannula 4.0 12/22/21 03:03 97.6 81 18 161/90 (113) 97.6 ROS: No Nausea, No Chest Pain, No Abdominal Pain, No Increase Cough General: Alert Cardiovascular: S1, S2 Abdomen: Soft Neuro Exam: Alert Extremities: No Edema Medications Active Scripts Medications Dose Route/Sig Max Daily Dose Days Date Category Proair Hfa Inhaler (Albuterol Sulfate) 8.5 Gm Hfa.aer.ad 2 Puff IH PRN Q4-6HRS PRN 21 12/19/21 Reported Stiolto Respimat Inhal [place] (Tiotropium Br/Olodaterol HCl) 4 Gm Mist.inhal 4 Gm IH PRN QEVNG 12/19/21 Reported Colace (Docusate Sodium) 100 Mg Capsule 100 Mg PO PRN PRN 12/19/21 Reported Diltiazem 24Hr Cd (Diltiazem HCl) 240 Mg Cap.er.24h 1 Cap PO DAILY 30 12/19/21 Reported Impression . IMPRESSION: 1. Abnormal x-ray, compatible with a history of chronic obstructive pulmonary disease, possible mild interstitial lung disease. 2. Chronic respiratory failure. 3. Recent fall, possible right hip fracture. 4. Rhabdomyolysis. MRI IMPRESSION: 1. Severe increased T2 signal/edema identified in the bilateral adductor muscles left greater than right could be severe muscle strain or interstitial muscle tear. 2. Mild increased T2 signal with corresponding subtle low T1 signal identified in the right femoral neck could be very subtle subacute/age indeterminate/stress fracture with cortical defect. 3. Severe degenerative changes left hip joint. 4. Small amount of fluid identified in the right trochanter bursa likely bursitis. Plan . Updated 12/22 Respiratory status compensated Call if needed BRITNEY ELIZABETH MD Dec 22, 2021 08:20
[2021-12-22] MEDS: DOCUSATE SODIUM 100 MG CAPSULE. PO SCH (08:30)
[2021-12-22] MEDS: ALPRAZolam 0.5 MG TABLET PO SCH ×2 (08:30→21:27)
[2021-12-22] MEDS: POLYETHYLENE GLYCOL 3350 17 GM PACKET. PO SCH (08:30)
[2021-12-22] MEDS: BISACODYL 5 MG TABLET.DR. PO SCH (08:30)
[2021-12-22] MEDS: CHOLECALCIFEROL (VITAMIN D3) 5,000 UNIT CAPSULE PO SCH (08:30)
[2021-12-22] MEDS: MUPIROCIN 2 % OINTMENT 22GM TUBE. TP SCH ×2 (09:20→21:27)
[2021-12-22] MEDS: NYSTATIN TOPICAL POWDER 15GM BOTTLE. TP SCH ×2 (09:20→21:00)
--- NOTE | 2021-12-22 09:48 | PDOC ---
PROGRESS NOTES Date of Service DATE: 12/22/21 TIME: 09:46 Subjective Subjective She admits less pain now. Objective Objective Vital Signs Date Time Temp Pulse Resp B/P (MAP) Pulse Ox O2 Delivery O2 Flow Rate FiO2 12/22/21 08:31 93 181/85 12/22/21 07:28 98 Nasal Cannula 4.0 12/22/21 07:00 97.1 18 97.1 Intake and Output 12/22/21 07:00 Intake Total 640 ml Output Total 1500 ml Balance -860 ml Intake Oral 640 ml Output Urine Total 1500 ml # Bowel Movements 1 Physical Exam Physical Exam She is sleepy this AM supine in bed with head end propped up and receiving oxygen by nasal canula. Plan Plan of Care Agree with plans for [facility] care unit transfer when medically stable. Comment Review of Relevant I have reviewed the following items shahram (where applicable) has been applied. Medications Current Medications Morphine Sulfate (Morphine Sulfate) 2 mg PRN Q2HR PRN IVP PAIN Last administered on 12/20/21at 09:05; Start 12/18/21 at 23:15 Oxycodone/ Acetaminophen (Percocet 5/325) 2 tab PRN Q4HRS PRN PO pain severe Last administered on 12/20/21at 20:17; Start 12/18/21 at 23:15 Sodium Chloride 1,000 ml @ 80 mls/hr [id number] IV Last administered on 12/20/21at 00:15; Start 12/18/21 at 23:15; Stop 12/20/21 at 20:33; Status DC Amlodipine Besylate (Norvasc) 5 mg DAILY PO ; Start 12/18/21 at 00:00; Status Cancel Hydralazine HCl (Apresoline) 25 mg TID PO Last administered on 12/19/21at 00:06; Start 12/18/21 at 00:00; Stop 12/19/21 at 08:39; Status DC Oxycodone/ Acetaminophen (Percocet 5/325) 1 tab PRN Q4HRS PRN PO PAIN mild/mod Last administered on 12/21/21at 20:30; Start 12/19/21 at 00:00 Diltiazem HCl (Cardizem 24hr Cd) 240 mg DAILY PO Last administered on 12/22/21at 08:31; Start 12/19/21 at 09:00 Docusate Sodium (Colace) 100 mg DAILY PO Last administered on 12/22/21 08:30; Start 12/19/21 at 09:00 Non-Formulary Medication (Tiotropium Br/ Olodaterol HCl (Stiolto Respimat Inhal [place])) 4 gm PRN QEVNG IH ; Start 12/19/21 at 08:45; Status UNV Albuterol/ Ipratropium (Duoneb) 3 ml RTQID NEB Last administered on 12/22/21at 07:24; Start 12/19/21 at 12:00 Gabapentin (Neurontin) 100 mg BID PO ; Start 12/19/21 at 09:00; Stop 12/19/21 at 08:50; Status DC Albuterol/ Ipratropium (Duoneb) 3 ml 1X ONCE NEB ; Start 12/19/21 at 08:45; Stop 12/19/21 at 08:48; Status DC Budesonide (Pulmicort) 0.5 mg RTBID NEB Last administered on 12/22/21at 07:24; Start 12/19/21 at 20:00 Heparin Sodium (Porcine) (Heparin Sodium) 5,000 unit Q8HRS SQ Last administered on 12/22/21 06:06; Start 12/19/21 at 14:00 Vitamin D (Vitamin D3) 5,000 unit DAILY PO Last administered on 12/22/21 08:30; Start 12/19/21 at 09:00 Nystatin (Nystop) 1 helio BID TP Last administered on 12/22/21 09:20; Start 12/19/21 at 14:00 Mupirocin (Bactroban) 1 helio BID TP Last administered on 12/22/21 09:20; Start 12/20/21 at 11:30 Polyethylene Glycol (miraLAX PACKET) 17 gm DAILY PO Last administered on 12/22 08:30; Start 12/21/21 at 09:00 Alprazolam (Xanax) 0.5 mg Q12HR PO Last administered on 12/22/21 08:30; Start 12/20/21 at 21:00 Bisacodyl (Dulcolax Supp) 10 mg PRN DAILY PRN [place] CONSTIPATION (1st Choice); Start 12/21/21 at 09:15 Bisacodyl (Dulcolax Tab) 10 mg DAILY PO Last administered on 12/22/21at 08:30; Start 12/22/21 at 09:00 Docusate Sodium (Enemeez) 283 mg PRN DAILY PRN [place] CONSTIPATION (2nd Choice); Start 12/21/21 at 09:15 Magnesium Hydroxide (Milk Of Magnesia) 2,400 mg PRN DAILY PRN PO CONSTIPATION Last administered on 12/21/21at 14:32; Start 12/21/21 at 09:15 Active Scripts Active Percocet 5-325 Mg Tablet (Oxycodone/Acetaminophen) 1 Each Tablet 1 Tab PO PRN Q4HRS PRN Vitamin D3 (Vitamin D) 125 Mcg Capsule 5,000 Unit PO DAILY Reported Ventolin Hfa Inhaler (Albuterol Sulfate) 18 Gm Hfa.aer.ad 2 Puff INH Q4HRS Hydralazine Hcl 50 Mg Tablet 1 Tab PO TID Methocarbamol 750 Mg Tablet 750 Mg PO TID Polyethylene Glycol 3350 2,500 Gm Powder 17 Gm PO DAILY Duoneb 0.5-3(2.5) Mg/3 Ml (Albuterol/Ipratropium) 3 Ml Ampul.neb 3 Ml NEB QID Hydroxyzine Hcl 25 Mg Tablet 1 Tab PO HS Docusate Sodium 100 Mg Capsule 1 Cap PO BID 7 Days Proair Hfa Inhaler (Albuterol Sulfate) 8.5 Gm Hfa.aer.ad 2 Puff IH PRN Q4-6HRS PRN 21 Days Stiolto Respimat Inhal [place] (Tiotropium Br/Olodaterol HCl) 4 Gm Mist.inhal 4 Gm IH PRN QEVNG Colace (Docusate Sodium) 100 Mg Capsule 100 Mg PO PRN PRN Diltiazem 24Hr Cd (Diltiazem HCl) 240 Mg Cap.er.24h 1 Cap PO DAILY 30 Days Vitals/I & O Vital Sign - Last 24 Hours 12/21/21 12/21/21 12/21/21 12/21/21 09:49 11:28 15:00 15:19 Temp 97.4 97.4 Pulse 77 86 Resp 19 B/P (MAP) 166/85 155/72 (99) Pulse Ox 93 92 98 O2 Delivery Nasal Cannula Nasal Cannula Nasal Cannula O2 Flow Rate 4.0 4.0 4.0 12/21/21 12/21/21 12/21/21 12/21/21 19:19 20:00 20:03 22:49 Temp 97.4 97.7 97.4 97.7 Pulse 94 81 Resp 19 18 B/P (MAP) 179/87 (117) 154/78 (103) Pulse Ox 93 95 96 O2 Delivery Nasal Cannula Nasal Cannula Nasal Cannula Nasal Cannula O2 Flow Rate 4.0 4.0 4.0 4.0 12/22/21 12/22/21 12/22/21 12/22/21 03:03 07:00 07:24 07:28 Temp 97.6 97.1 97.6 97.1 Pulse 81 86 Resp 18 18 B/P (MAP) 161/90 (113) 181/85 (117) Pulse Ox 97 98 98 98 O2 Delivery Nasal Cannula Nasal Cannula Nasal Cannula Nasal Cannula O2 Flow Rate 4.0 4.0 4.0 4.0 12/22/21 08:31 Pulse 93 B/P (MAP) 181/85 Intake and Output 12/21/21 12/21/21 12/22/21 15:00 23:00 07:00 Intake Total 360 ml 280 ml 0 ml Output Total 1500 ml Balance 360 ml 280 ml -1500 ml Justifications for Admission Other Justification RADHA SIERRA MD Dec 22, 2021 09:48
[2021-12-22 11:00] VITALS: BP 181/92
[2021-12-22 15:00] VITALS: BP 141/74
--- NOTE | 2021-12-22 15:18 | PDOC ---
[employer] PROGRESS NOTE Date of Service DOS: DATE: 12/22/21 TIME: 15:17 Chief Complaint Chief Complaint RIght hip injury, not a fracture, ortho following, COPD, with tachypnea, pulm following rhabdomyolysis, CK was 1480 for admit, better, iv fluid given cognitive decline, hip pain, 2 prn pain meds, noted allergy to gabapentin History of Present Illness History of Present Illness pain ok if not moving, sever pain when trying to stand her son, Jose Roberto is following, trying to place at Prov place now Vitals/I&O Vitals/I&O: Vital Signs Date Time Temp Pulse Resp B/P (MAP) Pulse Ox O2 Delivery O2 Flow Rate FiO2 12/22/21 15:06 18 12/22/21 15:04 97 Nasal Cannula 4.0 12/22/21 11:00 97.3 97 181/92 (121) 97.3 I & O 12/21/21 12/21/21 12/22/21 15:00 23:00 07:00 Intake Total 360 ml 280 ml 0 ml Output Total 1500 ml Balance 360 ml 280 ml -1500 ml Physical Exam General: Alert, Oriented X3, Cooperative, moderate distress Heart: Regular rate Abdomen: Soft, No tenderness Extremities: No edema, Normal pulses Skin: Other (Abraded skin on her legs and knees.) Comment Review of Relevant I have reviewed the following items shahram (where applicable) has been applied. Medications: Current Medications Medications (Trade) Dose Ordered Sig/Megan Route PRN Reason Start Time Stop Time Status Last Admin Dose Admin Bisacodyl (Dulcolax Tab) 10 mg DAILY PO 12/22/21 09:00 12/22/21 08:30 Justifications for Admission Other Justification IZABELA PELAYO MD Dec 22, 2021 15:18
--- NOTE | 2021-12-22 16:05 | NUR ---
SS following up with discharge planning. SS reviewed pt chart and discussed with pt RN. Pt is currently requiring oxygen at four liters nasal canula. WBAT. PT/OT recommended half-way unit. COVID19 PCR test pending for placement. Referrals sent to [facility], ; fax [phone], and [facility], ; fax [phone]. [facility] not in network with pt's insurance and declined pt. Pt accepted at [facility] pending insurance approval and COVID19 test result. Pt's RN notified. SS will continue to follow for discharge planning.
[2021-12-22 19:30] VITALS: BP 176/92
[2021-12-22 23:21] VITALS: BP 153/85
[2021-12-23 03:40] VITALS: BP 151/82
[2021-12-23] MEDS: oxyCODONE/APAP 5/325 1 TAB TABLET PO PRN ×4 (04:04→20:54)
[2021-12-23] MEDS: HEPARIN for SUB-Q USE 5,000 UNIT/ML VIAL. SQ SCH ×3 (06:06→20:59)
[2021-12-23 07:00] VITALS: BP 146/84
[2021-12-23] MEDS: IPRATRPIUM/ALBUTEROL 0.5/2.5MG 3 ML NEBU. NEB SCH ×4 (07:37→21:34)
[2021-12-23] MEDS: BUDESONIDE 0.5 MG/2 ML NEBU. NEB SCH ×2 (07:37→21:34)
[2021-12-23] MEDS: MUPIROCIN 2 % OINTMENT 22GM TUBE. TP SCH ×2 (08:35→20:55)
[2021-12-23] MEDS: ALPRAZolam 0.5 MG TABLET PO SCH ×2 (08:35→20:53)
[2021-12-23] MEDS: CHOLECALCIFEROL (VITAMIN D3) 5,000 UNIT CAPSULE PO SCH (08:35)
[2021-12-23] MEDS: POLYETHYLENE GLYCOL 3350 17 GM PACKET. PO SCH (08:35)
[2021-12-23] MEDS: DOCUSATE SODIUM 100 MG CAPSULE. PO SCH (08:35)
[2021-12-23] MEDS: BISACODYL 5 MG TABLET.DR. PO SCH (08:35)
[2021-12-23] MEDS: NYSTATIN TOPICAL POWDER 15GM BOTTLE. TP SCH ×2 (08:36→20:55)
--- NOTE | 2021-12-23 10:32 | PDOC ---
PROGRESS NOTES Date of Service DATE: 12/23/21 TIME: 10:28 Subjective Subjective No new complaints. Objective Objective Vital Signs Date Time Temp Pulse Resp B/P (MAP) Pulse Ox O2 Delivery O2 Flow Rate FiO2 12/23/21 09:20 Nasal Cannula 4.0 12/23/21 08:35 75 146/84 12/23/21 07:39 98 12/23/21 07:00 98.1 21 98.1 Intake and Output 12/23/21 07:00 Intake Total 300 ml Output Total 1950 ml Balance -1650 ml Intake Oral 300 ml Output Urine Total 1950 ml Physical Exam Physical Exam She is sleepy this AM in bed and she had significant bruising of skin of both big toes and she required maximal assistance for transfers and she made a few steps with roller walker at bedside with therapy yesterday. Plan Plan of Care Agree with plans for transfer to [facility]. Comment Review of Relevant I have reviewed the following items shahram (where applicable) has been applied. Medications Current Medications Morphine Sulfate (Morphine Sulfate) 2 mg PRN Q2HR PRN IVP PAIN Last administered on 12/20/21at 09:05; Start 12/18/21 at 23:15 Oxycodone/ Acetaminophen (Percocet 5/325) 2 tab PRN Q4HRS PRN PO pain severe Last administered on 12/23/21at 08:41; Start 12/18/21 at 23:15 Sodium Chloride 1,000 ml @ 80 mls/hr [id number] IV Last administered on 12/20/21at 00:15; Start 12/18/21 at 23:15; Stop 12/20/21 at 20:33; Status DC Amlodipine Besylate (Norvasc) 5 mg DAILY PO ; Start 12/18/21 at 00:00; Status Cancel Hydralazine HCl (Apresoline) 25 mg TID PO Last administered on 12/19/21at 00:06; Start 12/18/21 at 00:00; Stop 12/19/21 at 08:39; Status DC Oxycodone/ Acetaminophen (Percocet 5/325) 1 tab PRN Q4HRS PRN PO PAIN mild/mod Last administered on 12/23/21at 04:04; Start 12/19/21 at 00:00 Diltiazem HCl (Cardizem 24hr Cd) 240 mg DAILY PO Last administered on 12/23/21 08:35; Start 12/19/21 at 09:00 Docusate Sodium (Colace) 100 mg DAILY PO Last administered on 12/23/21 08:35; Start 12/19/21 at 09:00 Non-Formulary Medication (Tiotropium Br/ Olodaterol HCl (Stiolto Respimat Inhal [place])) 4 gm PRN QEVNG IH ; Start 12/19/21 at 08:45; Status UNV Albuterol/ Ipratropium (Duoneb) 3 ml RTQID NEB Last administered on 12/23/21at 07:37; Start 12/19/21 at 12:00 Gabapentin (Neurontin) 100 mg BID PO ; Start 12/19/21 at 09:00; Stop 12/19/21 at 08:50; Status DC Albuterol/ Ipratropium (Duoneb) 3 ml 1X ONCE NEB ; Start 12/19/21 at 08:45; Stop 12/19/21 at 08:48; Status DC Budesonide (Pulmicort) 0.5 mg RTBID NEB Last administered on 12/23/21at 07:37; Start 12/19/21 at 20:00 Heparin Sodium (Porcine) (Heparin Sodium) 5,000 unit Q8HRS SQ Last administered on 12/23/21at 06:06; Start 12/19/21 at 14:00 Vitamin D (Vitamin D3) 5,000 unit DAILY PO Last administered on 12/23/21 08:35; Start 12/19/21 at 09:00 Nystatin (Nystop) 1 helio BID TP Last administered on 12/23/21at 08:36; Start 12/19/21 at 14:00 Mupirocin (Bactroban) 1 helio BID TP Last administered on 12/23/21 08:35; Start 12/20/21 at 11:30 Polyethylene Glycol (miraLAX PACKET) 17 gm DAILY PO Last administered on 12/23/21 08:35; Start 12/21/21 at 09:00 Alprazolam (Xanax) 0.5 mg Q12HR PO Last administered on 12/23/21at 08:35; Start 12/20/21 at 21:00 Bisacodyl (Dulcolax Supp) 10 mg PRN DAILY PRN [place] CONSTIPATION (1st Choice); Start 12/21/21 at 09:15 Bisacodyl (Dulcolax Tab) 10 mg DAILY PO Last administered on 12/23/21at 08:35; Start 12/22/21 at 09:00 Docusate Sodium (Enemeez) 283 mg PRN DAILY PRN [place] CONSTIPATION (2nd Choice); Start 12/21/21 at 09:15 Magnesium Hydroxide (Milk Of Magnesia) 2,400 mg PRN DAILY PRN PO CONSTIPATION Last administered on 12/21/21at 14:32; Start 12/21/21 at 09:15 Active Scripts Active Percocet 5-325 Mg Tablet (Oxycodone/Acetaminophen) 1 Each Tablet 1 Tab PO PRN Q4HRS PRN Vitamin D3 (Vitamin D) 125 Mcg Capsule 5,000 Unit PO DAILY Reported Ventolin Hfa Inhaler (Albuterol Sulfate) 18 Gm Hfa.aer.ad 2 Puff INH Q4HRS Hydralazine Hcl 50 Mg Tablet 1 Tab PO TID Methocarbamol 750 Mg Tablet 750 Mg PO TID Polyethylene Glycol 3350 2,500 Gm Powder 17 Gm PO DAILY Duoneb 0.5-3(2.5) Mg/3 Ml (Albuterol/Ipratropium) 3 Ml Ampul.neb 3 Ml NEB QID Hydroxyzine Hcl 25 Mg Tablet 1 Tab PO HS Docusate Sodium 100 Mg Capsule 1 Cap PO BID 7 Days Proair Hfa Inhaler (Albuterol Sulfate) 8.5 Gm Hfa.aer.ad 2 Puff IH PRN Q4-6HRS PRN 21 Days Stiolto Respimat Inhal [place] (Tiotropium Br/Olodaterol HCl) 4 Gm Mist.inhal 4 Gm IH PRN QEVNG Colace (Docusate Sodium) 100 Mg Capsule 100 Mg PO PRN PRN Diltiazem 24Hr Cd (Diltiazem HCl) 240 Mg Cap.er.24h 1 Cap PO DAILY 30 Days Vitals/I & O Vital Sign - Last 24 Hours 12/22/21 12/22/21 12/22/21 12/22/21 11:00 11:16 12:00 15:00 Temp 97.3 97.4 97.3 97.4 Pulse 97 83 Resp 18 18 B/P (MAP) 181/92 (121) 141/74 (96) Pulse Ox 98 98 93 O2 Delivery Nasal Cannula Nasal Cannula Nasal Cannula Nasal Cannula O2 Flow Rate 4.0 4.0 4.0 4.0 12/22/21 12/22/21 12/22/21 12/22/21 15:04 15:06 15:36 19:30 Temp 97.8 97.8 Pulse 89 Resp 24 B/P (MAP) 176/92 (120) Pulse Ox 97 99 O2 Delivery Nasal Cannula Nasal Cannula O2 Flow Rate 4.0 4.0 12/22/21 12/22/21 12/22/21 12/22/21 20:00 20:50 21:27 21:58 Resp 18 Pulse Ox 96 O2 Delivery Nasal Cannula Nasal Cannula O2 Flow Rate 4.0 4.0 12/22/21 12/23/21 12/23/21 12/23/21 23:21 03:40 04:04 04:40 Temp 97.7 97.1 97.7 97.1 Pulse 87 72 Resp B/P (MAP) 153/85 (107) 151/82 (105) Pulse Ox 100 99 O2 Delivery Nasal Cannula Nasal Cannula O2 Flow Rate 4.0 4.0 12/23/21 12/23/21 12/23/21 12/23/21 07:00 07:39 08:00 08:35 Temp 98.1 98.1 Pulse 75 75 Resp 21 B/P (MAP) 146/84 (104) 146/84 Pulse Ox 91 98 O2 Delivery Nasal Cannula Nasal Cannula Nasal Cannula O2 Flow Rate 4.0 4.0 4.0 12/23/21 12/23/21 08:41 09:20 O2 Delivery Nasal Cannula Nasal Cannula O2 Flow Rate 4.0 4.0 Intake and Output 12/22/21 12/22/21 12/23/21 15:00 23:00 07:00 Intake Total 200 ml 100 ml Output Total 950 ml 400 ml 600 ml Balance -750 ml -300 ml -600 ml Justifications for Admission Other Justification RADHA SIERRA MD Dec 23, 2021 10:32
[2021-12-23 11:00] VITALS: BP 142/72
[2021-12-23] MEDS: FERROUS SULFATE 325 MG TABLET. PO SCH (12:00)
--- NOTE | 2021-12-23 14:05 | SNU/HH DC ---
DISCHARGE ORDERS DISCHARGE INFORMATION: DISCHARGE DATE: Dec 23, 2021 FINAL DIAGNOSIS RIght hip injury, not a fracture, ortho following, COPD, with tachypnea, pulm following rhabdomyolysis, CK was 1480 for admit, better, iv fluid given cognitive decline, hip pain, 2 prn pain meds, noted allergy to gabapentin severe muscle strain or interstitial muscle tear adductor muscle Severe degenerative changes left hip joint. right trochanter bursa bursitis. CONDITION ON DISCHARGE: Stable CODE STATUS: Code Status: Full SNF: SNF STAY <30 DAYS: Yes POST DISCHARGE ORDERS: ACTIVITY ORDERS: Activity as tolerated (limited by pain) WEIGHT BEARING STATUS: As tolerated DIET AFTER DISCHARGE: Regular TREATMENT/EQUIPMENT ORDERS: ADAPTIVE EQUIPMENT NEEDED: Front wheeled walker Physical Therapy For: Evalulation/Treatment Occupational Therapy For: Evaluation/Treatment DISCHARGE MEDICATIONS: Home Meds Active Scripts Oxycodone/Apap 5-325 (PERCOCET 5-325 MG TABLET ) 1 Each Tablet, 1 TAB PO PRN Q4HRS PRN for PAIN mild/mod, #45 TAB Prov:IZABELA PELAYO MD 12/21/21 Cholecalciferol (Vitamin D3) (Vitamin D3 ) 125 Mcg Capsule, 5000 UNIT PO DAILY for vitmain , #30 CAP Prov:IZABELA PELAYO MD 12/21/21 Alprazolam (ALPRAZOLAM) 0.5 Mg Tablet, 1 TAB PO Q12HR for anxiety, #40 TAB Prov:IZABELA PELAYO MD 12/21/21 Reported Medications Albuterol Sulfate (VENTOLIN HFA INHALER) 18 Gm Hfa.aer.ad, 2 PUFF INH Q4HRS for FOR ASTHMA, EACH 0 Refills 12/19/21 Hydralazine Hcl (HYDRALAZINE HCL) 50 Mg Tablet, 1 TAB PO TID for high blood pressure, #90 TAB 5 Refills 12/19/21 Methocarbamol (METHOCARBAMOL) 750 Mg Tablet, 750 MG PO TID for pain, TAB 12/19/21 Polyethylene Glycol 3350 (POLYETHYLENE GLYCOL 3350) 2,500 Gm Powder, 17 GM PO DAILY for constipation, #255 GM 0 Refills 12/19/21 Ipratropium/Albuterol Sulfate (DUONEB 0.5-3(2.5) MG/3 ML) 3 Ml Ampul.neb, 3 ML NEB QID for respiratory therapy, EACH 12/19/21 Hydroxyzine Hcl (HYDROXYZINE HCL) 25 Mg Tablet, 1 TAB PO HS for insomnia, #30 TAB 12/19/21 Docusate Sodium (DOCUSATE SODIUM) 100 Mg Capsule, 1 CAP PO BID for constipation for 7 Days, #14 CAP 0 Refills 12/19/21 Albuterol Sulfate (PROAIR HFA INHALER) 8.5 Gm Hfa.aer.ad, 2 PUFF IH PRN Q4-6HRS PRN for wheezing for 21 Days, #1 INHALER 0 Refills 12/19/21 Tiotropium Br/Olodaterol HCl (Stiolto Respimat Inhal [place]) 4 Gm Mist.inhal, 4 GM IH PRN QEVNG for COPD, SPRAY 12/19/21 Docusate Sodium (COLACE) 100 Mg Capsule, 100 MG PO PRN PRN for CONSTIPATION, CAP 12/19/21 Diltiazem HCl (Diltiazem 24Hr Cd) 240 Mg Cap.er.24h, 1 CAP PO DAILY for blood pressure for 30 Days, #30 CAP 0 Refills 12/19/21 Discontinued Reported Medications Doxycycline Hyclate (DOXYCYCLINE HYCLATE) 100 Mg Tablet, 1 TAB PO BID for -, #14 TAB 12/19/21 Prednisone (PREDNISONE) 20 Mg Tablet, 10 TAB PO DAILY for neuropathy, #5 TAB 12/19/21 IZABELA PELAYO MD Dec 23, 2021 14:05
[2021-12-23 15:00] VITALS: BP 141/65
[2021-12-23 19:21] VITALS: BP 163/74
[2021-12-23 23:12] VITALS: BP 149/77
[2021-12-24] MEDS: oxyCODONE/APAP 5/325 1 TAB TABLET PO PRN ×3 (03:48→18:11)
[2021-12-24] MEDS: HEPARIN for SUB-Q USE 5,000 UNIT/ML VIAL. SQ SCH ×3 (05:43→21:41)
[2021-12-24 07:20] VITALS: BP 161/80
[2021-12-24] MEDS: IPRATRPIUM/ALBUTEROL 0.5/2.5MG 3 ML NEBU. NEB SCH ×4 (07:31→20:57)
[2021-12-24] MEDS: BUDESONIDE 0.5 MG/2 ML NEBU. NEB SCH ×2 (07:31→20:57)
[2021-12-24] MEDS: DOCUSATE SODIUM 100 MG CAPSULE. PO SCH (08:02)
[2021-12-24] MEDS: BISACODYL 5 MG TABLET.DR. PO SCH (08:02)
[2021-12-24] MEDS: FERROUS SULFATE 325 MG TABLET. PO SCH (08:02)
[2021-12-24] MEDS: ALPRAZolam 0.5 MG TABLET PO SCH ×2 (08:02→21:32)
[2021-12-24] MEDS: NYSTATIN TOPICAL POWDER 15GM BOTTLE. TP SCH ×2 (08:03→21:33)
[2021-12-24] MEDS: POLYETHYLENE GLYCOL 3350 17 GM PACKET. PO SCH (08:03)
[2021-12-24] MEDS: MUPIROCIN 2 % OINTMENT 22GM TUBE. TP SCH ×2 (08:03→21:33)
[2021-12-24] MEDS: CHOLECALCIFEROL (VITAMIN D3) 5,000 UNIT CAPSULE PO SCH (08:03)
[2021-12-24 11:30] VITALS: BP 136/63
--- NOTE | 2021-12-24 11:38 | PDOC ---
PULMONARY PROGRESS NOTES DATE: 12/24/21 TIME: 11:37 Subjective No overnight events patient not more short of air, continues to have great pain mainly all over more activity Vitals Vital Signs Date Time Temp Pulse Resp B/P (MAP) Pulse Ox O2 Delivery O2 Flow Rate FiO2 12/24/21 08:02 86 12/24/21 08:00 Nasal Cannula 4.0 12/24/21 07:35 96 12/24/21 07:20 97.4 16 161/80 (107) 97.4 ROS: No Nausea, No Chest Pain, No Abdominal Pain, No Increase Cough General: Alert Cardiovascular: S1, S2 Abdomen: Soft Neuro Exam: Alert Extremities: No Edema Medications Active Scripts Medications Dose Route/Sig Max Daily Dose Days Date Category Proair Hfa Inhaler (Albuterol Sulfate) 8.5 Gm Hfa.aer.ad 2 Puff IH PRN Q4-6HRS PRN 21 12/19/21 Reported Stiolto Respimat Inhal [place] (Tiotropium Br/Olodaterol HCl) 4 Gm Mist.inhal 4 Gm IH PRN QEVNG 12/19/21 Reported Colace (Docusate Sodium) 100 Mg Capsule 100 Mg PO PRN PRN 12/19/21 Reported Diltiazem 24Hr Cd (Diltiazem HCl) 240 Mg Cap.er.24h 1 Cap PO DAILY 30 12/19/21 Reported Impression . IMPRESSION: 1. Abnormal x-ray, compatible with a history of chronic obstructive pulmonary disease, possible mild interstitial lung disease. 2. Chronic respiratory failure. 3. Recent fall, possible right hip fracture. 4. Rhabdomyolysis. MRI IMPRESSION: 1. Severe increased T2 signal/edema identified in the bilateral adductor muscles left greater than right could be severe muscle strain or interstitial muscle tear. 2. Mild increased T2 signal with corresponding subtle low T1 signal identified in the right femoral neck could be very subtle subacute/age indeterminate/stress fracture with cortical defect. 3. Severe degenerative changes left hip joint. 4. Small amount of fluid identified in the right trochanter bursa likely bursitis. Plan . Updated 12/24 Patient not able to transfer, pending PCR for Covid Respiratory status compensated Call if needed BRITNEY ELIZABETH MD Dec 24, 2021 11:38
[2021-12-24 12:19] VITALS: BP 118/65
[2021-12-24 15:30] VITALS: BP 153/77
--- NOTE | 2021-12-24 16:29 | PDOC ---
[employer] PROGRESS NOTE Date of Service DOS: DATE: 12/24/21 TIME: 16:29 Chief Complaint Chief Complaint LATE ENTRY, thought she was DC on 12/23 RIght hip injury, not a fracture, ortho following, COPD, with tachypnea, pulm following rhabdomyolysis, CK was 1480 for admit, better, iv fluid given cognitive decline, hip pain, 2 prn pain meds, noted allergy to gabapentin History of Present Illness History of Present Illness pain ok if not moving, sever pain when trying to stand her son, Jose Roberto is following, [phone] Prov place now Vitals/I&O Vitals/I&O: Vital Signs Date Time Temp Pulse Resp B/P (MAP) Pulse Ox O2 Delivery O2 Flow Rate FiO2 12/24/21 15:30 97.5 94 18 153/77 (102) 94 Nasal Cannula 4.0 97.5 I & O 12/23/21 12/23/21 12/24/21 15:00 23:00 07:00 Intake Total 120 ml Output Total 250 ml 1200 ml Balance -250 ml -1080 ml Physical Exam General: Alert, Oriented X3, Cooperative, moderate distress Heart: Regular rate Abdomen: Soft, No tenderness Extremities: No edema, Normal pulses Skin: Other (Abraded skin on her legs and knees.) Comment Review of Relevant I have reviewed the following items shahram (where applicable) has been applied. Justifications for Admission Other Justification IZABELA PELAYO MD Dec 24, 2021 16:29
--- NOTE | 2021-12-24 16:30 | PDOC ---
[employer] PROGRESS NOTE Date of Service DOS: DATE: 12/24/21 TIME: 16:29 Chief Complaint Chief Complaint to skilled, order placed reviewed RIght hip injury, not a fracture, ortho following, COPD, with tachypnea, pulm following rhabdomyolysis, CK was 1480 for admit, better, iv fluid given cognitive decline, hip pain, 2 prn pain meds, noted allergy to gabapentin History of Present Illness History of Present Illness to skilled when able she feels ok no change COVID PCR has delayed dc Vitals/I&O Vitals/I&O: Vital Signs Date Time Temp Pulse Resp B/P (MAP) Pulse Ox O2 Delivery O2 Flow Rate FiO2 12/24/21 15:30 97.5 94 18 153/77 (102) 94 Nasal Cannula 4.0 97.5 I & O 12/23/21 12/23/21 12/24/21 15:00 23:00 07:00 Intake Total 120 ml Output Total 250 ml 1200 ml Balance -250 ml -1080 ml Physical Exam General: Alert, Oriented X3, Cooperative, moderate distress Heart: Regular rate Abdomen: Soft, No tenderness Extremities: No edema, Normal pulses Skin: Other (Abraded skin on her legs and knees.) Comment Review of Relevant I have reviewed the following items shahram (where applicable) has been applied. Justifications for Admission Other Justification IZABELA PELAYO MD Dec 24, 2021 16:30
[2021-12-24 19:45] VITALS: BP 152/74
[2021-12-24 23:10] VITALS: BP 140/78
[2021-12-25 03:45] VITALS: BP_SYST 129; BP_SYST 170; BP_DIAS 82; BP_DIAS 86
[2021-12-25] MEDS: oxyCODONE/APAP 5/325 1 TAB TABLET PO PRN (04:03)
[2021-12-25] MEDS: HEPARIN for SUB-Q USE 5,000 UNIT/ML VIAL. SQ SCH ×2 (06:25→14:00)
[2021-12-25 06:40] VITALS: BP 143/72
[2021-12-25] MEDS: IPRATRPIUM/ALBUTEROL 0.5/2.5MG 3 ML NEBU. NEB SCH ×3 (07:29→15:26)
[2021-12-25] MEDS: BUDESONIDE 0.5 MG/2 ML NEBU. NEB SCH (07:29)
[2021-12-25] MEDS: POLYETHYLENE GLYCOL 3350 17 GM PACKET. PO SCH (07:56)
[2021-12-25] MEDS: DOCUSATE SODIUM 100 MG CAPSULE. PO SCH (07:56)
[2021-12-25] MEDS: ALPRAZolam 0.5 MG TABLET PO SCH (07:57)
[2021-12-25] MEDS: CHOLECALCIFEROL (VITAMIN D3) 5,000 UNIT CAPSULE PO SCH (07:57)
[2021-12-25] MEDS: NYSTATIN TOPICAL POWDER 15GM BOTTLE. TP SCH (07:57)
[2021-12-25] MEDS: FERROUS SULFATE 325 MG TABLET. PO SCH (07:57)
[2021-12-25] MEDS: BISACODYL 5 MG TABLET.DR. PO SCH (07:57)
[2021-12-25] MEDS: MUPIROCIN 2 % OINTMENT 22GM TUBE. TP SCH (07:58)
--- NOTE | 2021-12-25 09:06 | PDOC ---
PROGRESS NOTES Date of Service DATE: 12/25/21 TIME: 09:01 Subjective Subjective She admits of being sleepy this AM. Objective Objective Vital Signs Date Time Temp Pulse Resp B/P (MAP) Pulse Ox O2 Delivery O2 Flow Rate FiO2 12/25/21 08:00 Nasal Cannula 4.0 12/25/21 07:57 75 143/72 12/25/21 07:29 97 12/25/21 06:40 97.7 20 97.7 Intake and Output 12/25/21 07:00 Intake Total 1395 ml Output Total 1200 ml Balance 195 ml Intake Oral 1395 ml Output Urine Total 1200 ml Physical Exam Physical Exam She is alert,supine in bed and continues with bruised skin of both big toes,right>left and she continues with painfully limited lumbar spine and let hip joint and she requires physical assistance for bed mobility and transfers and made a few steps with physical therapy. Plan Plan of Care Waiting for transfer to alf care unit. Comment Review of Relevant I have reviewed the following items shahram (where applicable) has been applied. Medications Current Medications Morphine Sulfate (Morphine Sulfate) 2 mg PRN Q2HR PRN IVP PAIN Last administered on 12/20/21at 09:05; Start 12/18/21 at 23:15 Oxycodone/ Acetaminophen (Percocet 5/325) 2 tab PRN Q4HRS PRN PO pain severe Last administered on 12/23/21at 08:41; Start 12/18/21 at 23:15 Sodium Chloride 1,000 ml @ 80 mls/hr [id number] IV Last administered on 12/20/21at 00:15; Start 12/18/21 at 23:15; Stop 12/20/21 at 20:33; Status DC Amlodipine Besylate (Norvasc) 5 mg DAILY PO ; Start 12/18/21 at 00:00; Status Cancel Hydralazine HCl (Apresoline) 25 mg TID PO Last administered on 12/19/21at 00:06; Start 12/18/21 at 00:00; Stop 12/19/21 at 08:39; Status DC Oxycodone/ Acetaminophen (Percocet 5/325) 1 tab PRN Q4HRS PRN PO PAIN mild/mod Last administered on 12/25/21at 04:03; Start 12/19/21 at 00:00 Diltiazem HCl (Cardizem 24hr Cd) 240 mg DAILY PO Last administered on 12/25/21 07:57; Start 12/19/21 at 09:00 Docusate Sodium (Colace) 100 mg DAILY PO Last administered on 12/25/21 07:56; Start 12/19/21 at 09:00 Non-Formulary Medication (Tiotropium Br/ Olodaterol HCl (Stiolto Respimat Inhal Dairy)) 4 gm PRN QEVNG IH ; Start 12/19/21 at 08:45; Status UNV Albuterol/ Ipratropium (Duoneb) 3 ml RTQID NEB Last administered on 12/25/21 07:29; Start 12/19/21 at 12:00 Gabapentin (Neurontin) 100 mg BID PO ; Start 12/19/21 at 09:00; Stop 12/19/21 at 08:50; Status DC Albuterol/ Ipratropium (Duoneb) 3 ml 1X ONCE NEB ; Start 12/19/21 at 08:45; Stop 12/19/21 at 08:48; Status DC Budesonide (Pulmicort) 0.5 mg RTBID NEB Last administered on 12/25/21at 07:29; Start 12/19/21 at 20:00 Heparin Sodium (Porcine) (Heparin Sodium) 5,000 unit Q8HRS SQ Last administered on 12/25/21at 06:25; Start 12/19/21 at 14:00 Vitamin D (Vitamin D3) 5,000 unit DAILY PO Last administered on 12/25/21 07:57; Start 12/19/21 at 09:00 Nystatin (Nystop) 1 helio BID TP Last administered on 12/25/21 07:57; Start 12/19/21 at 14:00 Mupirocin (Bactroban) 1 helio BID TP Last administered on 12/25/21 07:58; Start 12/20/21 at 11:30 Polyethylene Glycol (miraLAX PACKET) 17 gm DAILY PO Last administered on 12/25/21 07:56; Start 12/21/21 at 09:00 Alprazolam (Xanax) 0.5 mg Q12HR PO Last administered on 12/25/21 07:57; Start 12/20/21 at 21:00 Bisacodyl (Dulcolax Supp) 10 mg PRN DAILY PRN [place] CONSTIPATION (1st Choice); S tart 12/21/21 at 09:15 Bisacodyl (Dulcolax Tab) 10 mg DAILY PO Last administered on 12/25/21at 07:57; Start 12/22/21 at 09:00 Docusate Sodium (Enemeez) 283 mg PRN DAILY PRN [place] CONSTIPATION (2nd Choice); Start 12/21/21 at 09:15 Magnesium Hydroxide (Milk Of Magnesia) 2,400 mg PRN DAILY PRN PO CONSTIPATION Last administered on 12/21/21at 14:32; Start 12/21/21 at 09:15 Ferrous Sulfate (Feosol) 325 mg DAILYWBKFT PO Last administered on 12/25/21at 07:57; Start 12/23/21 at 11:30 Active Scripts Active Percocet 5-325 Mg Tablet (Oxycodone/Acetaminophen) 1 Each Tablet 1 Tab PO PRN Q4HRS PRN Vitamin D3 (Vitamin D) 125 Mcg Capsule 5,000 Unit PO DAILY Reported Ventolin Hfa Inhaler (Albuterol Sulfate) 18 Gm Hfa.aer.ad 2 Puff INH Q4HRS Hydralazine Hcl 50 Mg Tablet 1 Tab PO TID Methocarbamol 750 Mg Tablet 750 Mg PO TID Polyethylene Glycol 3350 2,500 Gm Powder 17 Gm PO DAILY Duoneb 0.5-3(2.5) Mg/3 Ml (Albuterol/Ipratropium) 3 Ml Ampul.neb 3 Ml NEB QID Hydroxyzine Hcl 25 Mg Tablet 1 Tab PO HS Docusate Sodium 100 Mg Capsule 1 Cap PO BID 7 Days Proair Hfa Inhaler (Albuterol Sulfate) 8.5 Gm Hfa.aer.ad 2 Puff IH PRN Q4-6HRS PRN 21 Days Stiolto Respimat Inhal Dairy (Tiotropium Br/Olodaterol HCl) 4 Gm Mist.inhal 4 Gm IH PRN QEVNG Colace (Docusate Sodium) 100 Mg Capsule 100 Mg PO PRN PRN Diltiazem 24Hr Cd (Diltiazem HCl) 240 Mg Cap.er.24h 1 Cap PO DAILY 30 Days Vitals/I & O Vital Sign - Last 24 Hours 12/24/21 12/24/21 12/24/21 12/24/21 11:30 12:19 15:22 15:30 Temp 97.7 97.8 97.5 97.7 97.8 97.5 Pulse 82 83 94 Resp 16 16 18 B/P (MAP) 136/63 (87) 118/65 (82) 153/77 (102) Pulse Ox 96 93 94 O2 Delivery Nasal Cannula Nasal Cannula Nasal Cannula O2 Flow Rate 4.0 4.0 4.0 12/24/21 12/24/21 12/24/21 12/24/21 19:45 20:11 20:58 23:10 Temp 98.2 98.1 98.2 98.1 Pulse 87 81 Resp 20 20 B/P (MAP) 152/74 (100) 140/78 (98) Pulse Ox 98 95 98 O2 Delivery Nasal Cannula Nasal Cannula Nasal Cannula Nasal Cannula O2 Flow Rate 4.0 4.0 4.0 4.0 12/25/21 12/25/21 12/25/21 12/25/21 03:45 04:03 04:32 06:40 Temp 98.4 97.7 98.4 97.7 Pulse 78 75 Resp 18 18 18 20 B/P (MAP) 170/86 (114) 143/72 (95) Pulse Ox 97 97 O2 Delivery Nasal Cannula Nasal Cannula O2 Flow Rate 4.0 4.0 12/25/21 12/25/21 12/25/21 07:29 07:57 08:00 Pulse 75 B/P (MAP) 143/72 Pulse Ox 97 O2 Delivery Nasal Cannula Nasal Cannula O2 Flow Rate 4.0 4.0 Intake and Output 12/24/21 12/24/21 12/25/21 15:00 23:00 07:00 Intake Total 850 ml 345 ml 200 ml Output Total 500 ml 700 ml Balance 350 ml 345 ml -500 ml Justifications for Admission Other Justification RADHA SIERRA MD Dec 25, 2021 09:06
--- NOTE | 2021-12-25 10:29 | PDOC ---
PULMONARY PROGRESS NOTES DATE: 12/25/21 TIME: 10:29 Subjective No overnight events patient not more short of air, continues to have great pain mainly all over more activity Vitals Vital Signs Date Time Temp Pulse Resp B/P (MAP) Pulse Ox O2 Delivery O2 Flow Rate FiO2 12/25/21 08:00 Nasal Cannula 4.0 12/25/21 07:57 75 143/72 12/25/21 07:29 97 12/25/21 06:40 97.7 20 97.7 ROS: No Nausea, No Chest Pain, No Abdominal Pain, No Increase Cough General: Alert Cardiovascular: S1, S2 Abdomen: Soft Neuro Exam: Alert Extremities: No Edema Medications Active Scripts Medications Dose Route/Sig Max Daily Dose Days Date Category Proair Hfa Inhaler (Albuterol Sulfate) 8.5 Gm Hfa.aer.ad 2 Puff IH PRN Q4-6HRS PRN 21 12/19/21 Reported Stiolto Respimat Inhal [place] (Tiotropium Br/Olodaterol HCl) 4 Gm Mist.inhal 4 Gm IH PRN QEVNG 12/19/21 Reported Colace (Docusate Sodium) 100 Mg Capsule 100 Mg PO PRN PRN 12/19/21 Reported Diltiazem 24Hr Cd (Diltiazem HCl) 240 Mg Cap.er.24h 1 Cap PO DAILY 30 12/19/21 Reported Impression . IMPRESSION: 1. Abnormal x-ray, compatible with a history of chronic obstructive pulmonary disease, possible mild interstitial lung disease. 2. Chronic respiratory failure. 3. Recent fall, possible right hip fracture. 4. Rhabdomyolysis. MRI IMPRESSION: 1. Severe increased T2 signal/edema identified in the bilateral adductor muscles left greater than right could be severe muscle strain or interstitial muscle tear. 2. Mild increased T2 signal with corresponding subtle low T1 signal identified in the right femoral neck could be very subtle subacute/age indeterminate/stress fracture with cortical defect. 3. Severe degenerative changes left hip joint. 4. Small amount of fluid identified in the right trochanter bursa likely bursitis. Plan . Updated 12/25 Respiratory status compensated Okay to transfer BRITNEY ELIZABETH MD Dec 25, 2021 10:29
[2021-12-25 11:00] VITALS: BP 155/72
--- NOTE | 2021-12-25 11:22 | NUR ---
SS following up with discharge planning. SS reviewed pt chart and discussed with pt RN. Pt is currently requiring oxygen at four liters nasal canula. COVID19 negative. PT/OT recommended residential unit. Pt accepted at [facility], ; fax [phone], pending insurance approval. Clinical updates sent to [facility]. [facility], social work, and accounting director at [facility] to follow up with insurance authorization. Packet placed on chart. SS will continue to follow for discharge planning. Addendum: 12/25/21 at 1238 by LAURA STARK SS Insurance approved. Discharge orders received and sent to [facility]. Pt will discharge today and go to [facility] at 1400 via [facility] ambulance, . Packet and ambulance form on the chart. Pt, pt's RN, and pt's son notified.
[2021-12-25] MEDS ORDERED: OXYC1TAB15 PO (12:46)
[2021-12-25] MEDS ORDERED: ALPR0.5T6 PO (12:46)
--- NOTE | 2021-12-25 15:21 | NUR ---
RN spoke with [facility] who stated pickup time would be delayed due to staffing issues. Department was unable to give time estimate for pt pickup, stated it would probably be a while but they would leave us on their pickup list if we wanted.
--- NOTE | 2021-12-25 16:15 | NUR ---
Discharge Note: KESHAV RONQUILLO [facility] Discharge instructions and discharge home medications reviewed with Patient and a copy given. All questions have been answered and understanding verbalized. Discontinued lines and drains: Heart monitor discontinued Patient discharged to [facility], transported on stretcher by ELIANA
--- NOTE | 2021-12-26 17:10 | PDOC3 ---
[facility]-Discharge Summary Date of Admission: Date of Admission: Dec 19, 2021 Date of Discharge: Date of Discharge: Dec 25, 2021 Discharge Diagnosis: Discharge Diagnosis: Fall Right hip pain Rhabdomyloysis improved with IVF Cognitive impairment Hospital Course: Hospital Course: 86 yo F that fell at home and went to [facility] ED. She was transferred to this facility to be evaluated for right hip fracture. Ortho cleared patient and ruled out fracture. Patient still needing rehab due to falls. She will be transferred [facility]. By day of discharge, pt was clinically stable and ready for discharge. Rest of hospital course was uneventful Activity: Activity: Resume previous activity Diet: Diet: Cardiac Medications: Home Meds Active Scripts Alprazolam (ALPRAZOLAM) 0.5 Mg Tablet, 0.5 MG PO Q12HR for anxiety for 5 Days, #10 TAB Prov:LUBNA PROCTOR MD 12/25/21 Oxycodone/Apap 5-325 (PERCOCET 5-325 MG TABLET ) 1 Each Tablet, 1 TAB PO PRN Q4HRS PRN for PAIN mild/mod for 3 Days, #18 TAB Prov:LUBNA PROCTOR MD 12/25/21 Cholecalciferol (Vitamin D3) (Vitamin D3 ) 125 Mcg Capsule, 5000 UNIT PO DAILY for vitmain , #30 CAP Prov:IZABELA PELAYO MD 12/21/21 Reported Medications Albuterol Sulfate (VENTOLIN HFA INHALER) 18 Gm Hfa.aer.ad, 2 PUFF INH Q4HRS for FOR ASTHMA, EACH 0 Refills 12/19/21 Hydralazine Hcl (HYDRALAZINE HCL) 50 Mg Tablet, 1 TAB PO TID for high blood pressure, #90 TAB 5 Refills 12/19/21 Methocarbamol (METHOCARBAMOL) 750 Mg Tablet, 750 MG PO TID for pain, TAB 12/19/21 Polyethylene Glycol 3350 (POLYETHYLENE GLYCOL 3350) 2,500 Gm Powder, 17 GM PO DAILY for constipation, #255 GM 0 Refills 12/19/21 Ipratropium/Albuterol Sulfate (DUONEB 0.5-3(2.5) MG/3 ML) 3 Ml Ampul.neb, 3 ML NEB QID for respiratory therapy, EACH 12/19/21 Hydroxyzine Hcl (HYDROXYZINE HCL) 25 Mg Tablet, 1 TAB PO HS for insomnia, #30 TAB 12/19/21 Docusate Sodium (DOCUSATE SODIUM) 100 Mg Capsule, 1 CAP PO BID for constipation for 7 Days, #14 CAP 0 Refills 12/19/21 Albuterol Sulfate (PROAIR HFA INHALER) 8.5 Gm Hfa.aer.ad, 2 PUFF IH PRN Q4-6HRS PRN for wheezing for 21 Days, #1 INHALER 0 Refills 12/19/21 Tiotropium Br/Olodaterol HCl (Stiolto Respimat Inhal [place]) 4 Gm Mist.inhal, 4 GM IH PRN QEVNG for COPD, SPRAY 12/19/21 Docusate Sodium (COLACE) 100 Mg Capsule, 100 MG PO PRN PRN for CONSTIPATION, CAP 12/19/21 Diltiazem HCl (Diltiazem 24Hr Cd) 240 Mg Cap.er.24h, 1 CAP PO DAILY for blood pressure for 30 Days, #30 CAP 0 Refills 12/19/21 Discontinued Reported Medications Doxycycline Hyclate (DOXYCYCLINE HYCLATE) 100 Mg Tablet, 1 TAB PO BID for -, #14 TAB 12/19/21 Prednisone (PREDNISONE) 20 Mg Tablet, 10 TAB PO DAILY for neuropathy, #5 TAB 12/19/21 Alprazolam (ALPRAZOLAM) 0.5 Mg Tablet, 1 TAB PO Q12HR for anxiety/agitation, #60 TAB 12/19/21 Scheduled Albuterol Sulfate (Ventolin Hfa Inhaler), 2 PUFF INH Q4HRS, (Reported) Alprazolam (Alprazolam), 0.5 MG PO Q12HR Cholecalciferol (Vitamin D3) (Vitamin D3 ), 5,000 UNIT PO DAILY Diltiazem HCl (Diltiazem 24Hr Cd), 1 CAP PO DAILY, (Reported) Docusate Sodium (Docusate Sodium), 1 CAP PO BID, (Reported) Hydralazine Hcl (Hydralazine Hcl), 1 TAB PO TID, (Reported) Hydroxyzine Hcl (Hydroxyzine Hcl), 1 TAB PO HS, (Reported) Ipratropium/Albuterol Sulfate (Duoneb 0.5-3(2.5) Mg/3 Ml), 3 ML NEB QID, (Reported) Methocarbamol (Methocarbamol), 750 MG PO TID, (Reported) Polyethylene Glycol 3350 (Polyethylene Glycol 3350), 17 GM PO DAILY, (Reported) Tiotropium Br/Olodaterol HCl (Stiolto Respimat Inhal [place]), 4 GM IH PRN QEVNG, (Reported) Scheduled PRN Albuterol Sulfate (Proair Hfa Inhaler), 2 PUFF IH PRN Q4-6HRS PRN for wheezing, (Reported) Docusate Sodium (Colace), 100 MG PO PRN PRN for CONSTIPATION, (Reported) Oxycodone/Apap 5-325 (Percocet 5-325 Mg Tablet ), 1 TAB PO PRN Q4HRS PRN for PAIN mild/mod Discontinued Medications Alprazolam (Alprazolam), 1 TAB PO Q12HR, (Reported) Discontinued Reason: Prescription changed Doxycycline Hyclate (Doxycycline Hyclate), 1 TAB PO BID, (Reported) Prednisone (Prednisone), 10 TAB PO DAILY, (Reported) Total Time: Total Time: Total time spent was 32 minutes in preparing scripts and discharge planning with SW and RN. Patient seen and examined on day of Discharge. Justicifation of Admission Dx: Justifications for Admission: Justification of Admission Dx: Yes Fracture: Fracture LUBNA PROCTOR MD Dec 26, 2021 17:09
[2022-01-01] MEDS ORDERED: OXYC1TAB15 PO (12:42)
== END 2021-12-25 16:10 | DRG 558 ==
LOC: 6 SOUTH 22:13
PROVIDERS: ADMIT Internal Medicine; ATTEND Internal Medicine
DX: M62.82 Rhabdomyolysis (principal); M87.9 Osteonecrosis, unspecified; J96.10 Chronic respiratory failure, unspecified whether with hypoxia or hypercapnia; G56.03 Carpal tunnel syndrome, bilateral upper limbs; G62.9 Polyneuropathy, unspecified; G89.29 Other chronic pain; I10 Essential (primary) hypertension; J44.9 Chronic obstructive pulmonary disease, unspecified; M16.10 Unilateral primary osteoarthritis, unspecified hip; M19.011 Primary osteoarthritis, right shoulder; M19.012 Primary osteoarthritis, left shoulder; M19.039 Primary osteoarthritis, unspecified wrist; M21.952 Unspecified acquired deformity of left thigh; M47.816 Spondylosis without myelopathy or radiculopathy, lumbar region; M70.61 Trochanteric bursitis, right hip; M70.62 Trochanteric bursitis, left hip; M19.90 Unspecified osteoarthritis, unspecified site; Z20.822 Contact with and (suspected) exposure to COVID-19; Z88.8 Allergy status to other drugs, medicaments and biological substances
CPT/HCPCS: 36415; 72195; 73502; 80048; 80053; 82310; 82550; 84484; 85025; 85027; 93005; 94640; 94760; J1644; J2270; J7030; U0003; 97110-GP; 97116-GP; 97530-GP; 97535-GO; G0378; J7626

== ENCOUNTER → 2022-01-29 | Outpatient (CLI) | payer MEDICARE ==
[~2022-01-29] MED LIST changes: +ALBU2.5V8 IH; +ALPR0.5T6 PO; +CHOL5000 PO; +DILT240C33 PO; +DOCU-109 PO; +DOCU100C28 PO; +DOXY100T PO; +HYDR-2869 PO; +HYDR25TA PO; +IPRA3AMP29 NEB; +METH-562 PO; +OXYC1TAB15 PO; +POLY2500 PO; +PRED20TA PO; +TIOT4MIS3 IH; +VENTOLIN HFA18 GM INH; -hydrALAZINE 25 MG TABLET PO SCH
[2022-01-29 08:59] LABS: BASO # 0.1 x10^3/uL (0.0-0.2); BASO % 1 % (0-3); EOS # 0.1 x10^3/uL (0.0-0.7); EOS % 2 % (0-3); HEMATOCRIT 36.2 % (36.0-47.0); HEMOGLOBIN 11.9 g/dL (12.0-15.5); LYMPH # 1.4 x10^3/uL (1.0-4.8); LYMPH % 20 % (24-48); MEAN CORPUSCULAR HEMOGLOBIN 31 pg (25-35); MEAN CORPUSCULAR HGB CONC 33 g/dL (31-37); MEAN CORPUSCULAR VOLUME 93 fL (79-100); MONO # 0.7 x10^3/uL (0.0-1.1); MONO % 10 % (0-9); NEUT # 4.9 x10^3/uL (1.8-7.7); NEUT % 68 % (31-73); PLATELET COUNT 379 x10^3/uL (140-400); RED BLOOD COUNT 3.87 x10^6/uL (3.50-5.40); RED CELL DISTRIBUTION WIDTH 14.3 % (11.5-14.5); WHITE BLOOD COUNT 7.2 x10^3/uL (4.0-11.0)
[2022-01-29 09:27] LABS: ALBUMIN 3.9 g/dL (3.4-5.0); ALBUMIN/GLOBULIN RATIO 1.1 (1.0-1.7); CALCIUM 8.8 mg/dL (8.5-10.1); CREATININE 0.8 mg/dL (0.6-1.0); GFR 68.2; POTASSIUM 4.5 mmol/L (3.5-5.1); TOTAL BILIRUBIN 0.5 mg/dL (0.2-1.0); TOTAL PROTEIN 7.6 g/dL (6.4-8.2)
== END ==
LOC: SPEC 00:07
PROVIDERS: ATTEND Internal Medicine
DX: S72.001D Fracture of unspecified part of neck of right femur, subsequent encounter for closed fracture with routine healing (principal); D64.9 Anemia, unspecified
CPT/HCPCS: 36415; 80053; 84134; 85025